=== PATIENT | female | born 1995 | race Caucasian/White ===

== ENCOUNTER 2020-10-07 11:04 | Outpatient (REF) | payer SELFPAY ==
--- NOTE | ~2020-10-07 | XR_ITS ---
EXAMINATION: XR ANKLE, RIGHT CLINICAL INFORMATION: Lateral pain without injury. COMPARISON: Radiographs dated 08/13/2014. TECHNIQUE: AP, lateral, and mortise views of the right ankle. FINDINGS: Alignment and mineralization are normal. Ankle mortise is intact. No fracture, dislocation or right ankle joint effusion is seen. Boehler's angle is normal. There is a tiny posterior calcaneal spur. There is very mild spurring of the dorsal talus. There is mild soft tissue swelling adjacent to the lateral malleolus. XR/XR ankle RT 2V IMPRESSION: 1. No fracture, dislocation or right ankle joint effusion is seen. 2. There is mild soft tissue swelling adjacent to the lateral malleolus. 3. There is a tiny posterior calcaneal spur.
== END 2020-10-07 11:05 | disposition home or self-care (01) ==
LOC: HO.XRAY 11:04
PROVIDERS: Visit Provider Emergency Medicine
DX: M25.571 Pain in right ankle and joints of right foot (principal)
CPT/HCPCS: 73600

== ENCOUNTER 2021-02-18 14:55 | Outpatient (REF) | payer OTHER, SELFPAY ==
--- NOTE | ~2021-02-18 | XR_ITS ---
EXAMINATION: XR chest 2V CLINICAL INFORMATION: Reason for Exam COVID-19 COMPARISON: Chest radiograph 06/21/2017 TECHNIQUE: 2 views of the chest XR/XR chest 2V FINDINGS/IMPRESSION: Clear lungs. No pneumothorax. No pleural effusion. Normal cardiomediastinal silhouette.
[2021-02-18 15:37] LABS: Hematocrit 42.7 % (37.0-47.0); Hemoglobin 13.4 g/dl (12.0-16.0); Mean Corpuscular HGB Conc 31.4 g/dl (31.0-35.0); Mean Corpuscular Hemoglobin 26.5 pg (27.0-33.0); Mean Corpuscular Volume 84.6 fL (80.0-98.0); Platelet Count 265 X10*3/uL (160-400); Red Blood Count 5.05 X10*6/uL (4.20-5.50); Red Cell Distribution Width 13.2 % (11.0-16.0); White Blood Count 7.2 X10*3/uL (4.8-10.8)
[2021-02-18 16:06] LABS: Anion Gap 10 (12-20); Blood Urea Nitrogen 12 mg/dL (9-16); Calcium 9.5 mg/dL (8.4-10.2); Carbon Dioxide 28 mmol/L (22-29); Chloride 103 mmol/L (96-108); Estimated Glomerular Filt Rate > 60; Glucose Random 90 mg/dL (60-115); Potassium 4.2 mmol/L (3.3-5.1); Sodium 137 mmol/L (135-145)
== END 2021-02-18 14:56 | disposition home or self-care (01) ==
LOC: HO.LAB 14:55
PROVIDERS: PCP Family Medicine; Visit Provider Family Medicine
DX: U07.1 COVID-19 (principal); R05.3 Chronic cough; Z20.822 Contact with and (suspected) exposure to COVID-19
CPT/HCPCS: 36415; 71046; 80048; 85027

== ENCOUNTER 2021-12-16 20:42 | Emergency (ER) | payer OTHER, SELFPAY ==
[2021-12-16 20:50] VITALS: BP 139/72; PULSE 90; RESP 18; TEMP 36.1; O2SAT 99; BMI 45.9
--- NOTE | 2021-12-16 23:40 | ED.WOUNDLAC ---
HPI - Wound/Laceration General Chief Complaint: Wound/Laceration Stated Complaint: R middle finger laceration Time Seen by Provider: 12/16/21 23:40 Source: patient Mode of arrival: ambulatory Limitations: no limitations History of Present Illness HPI narrative: 26-year-old female presents with a superficial laceration to the right tip of her middle finger that occurred while she was opening a can of corn beef. Is unknown when her last Tdap vaccine was updated. Onset (ago): hour(s) (Within the hour of arrival) Extremity Location: right: hand (Tip of middle finger) Place: home Patient tetanus UTD: No Context: accidental Associated symptoms: pain Treatments prior to arrival: bandage Related Data Allergies Allergy/AdvReac Type Severity Reaction Status Date / Time No Known Allergies Allergy Unverified 11/07/19 17:25 Review of Systems Review of Systems: Constitutional: No Fever, No Chills ENT/Mouth: No Ear Pain, No Hoarseness, No sore throat Eyes: No Eye Pain, No Swelling, No Redness, No Foreign Body Cardiovascular: No Chest Pain, No SOB Respiratory: No Cough, No Dyspnea Gastrointestinal: No Nausea, No Vomiting, No Diarrhea, No abdominal Pain Genitourinary: No Dysuria, No Hematuria Musculoskeletal: positive right middle finger pain, No Myalgias, No Joint Swelling Skin: Superficial laceration to the right middle finger tip Neuro: No Weakness, No Numbness, No Paresthesias, No Loss of Consciousness, No Dizziness, No Headache Psych: No Anxiety/Panic, No Depression Heme/Lymph: no easy bruising, no Lymphadenopathy Endocrine: No Polyuria, No Polydipsia Yes all other systems are reviewed and are negative [facility] Past Medical History Attestation statement: The following information was validated with the patient. Source: old records reviewed Social History Social History Advance Directives: No Advance Directives Information Provided: Yes Physical Exam Vital Signs: Vital Signs: Last Vital Signs Temp 97.0 F 12/16/21 20:50 Pulse 90 12/16/21 20:50 Resp 18 12/16/21 20:50 BP 139/72 12/16/21 20:50 Pulse Ox 99 12/16/21 20:50 O2 Del Method 12/16/21 20:50 BMI result Body Mass Index 45.9 Appearance: Alert. Oriented X3. No acute distress. Eyes: Pupils equal, round and reactive to light. ENT: Pharynx normal. Neck: Normal inspection. Neck supple. CVS: Normal heart rate and rhythm. Pulses normal. Respiratory: No respiratory distress. Breath sounds normal. Abdomen: Soft and nontender. Skin: Superficial laceration to the tip of the index finger. Skin warm and dry. Normal skin color. Normal skin turgor. Extremities: No lower extremity edema. Gait well-balanced well coordinated. Neuro: No motor deficit. No sensory deficit. Cranial nerves 2-12 intact. Course Course Course Narrative: 26-year-old female presents with superficial laceration to the tip of her right middle finger. She believes that her tetanus vaccine is up-to-date but is unable to give me. Laceration is superficial, will clean with Betadine, apply Steri strip and Dermabond, and update Tdap vaccine. Patient has full range of motion to the digits, pulses equal to bilateral upper extremities. No further action required at this time. Patient verbalized understanding of and agrees plan care discharge home. Verbalized understanding of signs symptoms indicating need for emergent intervention. MDM - Wound/Laceration Differential Diagnosis Differential diagnosis: Likely laceration and abrasion Medical Records Attestation: I reviewed the patient's medical records. Discharge Plan Discharge Clinical Impression: Laceration Patient Disposition: Home, Self-Care Instructions: Finger Laceration (ED), Skin Adhesive Care (ED) Additional Instructions: You were evaluated for laceration to the tip of your 3rd finger on the right hand. We placed a Steri-Strips, and glue. Steri-Strips and glue will fall off on their own. We updated her Tdap vaccine today. Thank you for choosing this emergency department for evaluation. Please follow-up with primary care physician as needed. Return to the emergency department for any new, concerning, or worsening symptoms. Interventions: ED Discharge Assessment Last Done: 12/17/21 00:27 Discharge Date/Time: 12/17/21 00:30
[2021-12-17] MEDS: Diphth,Pertus(ACell),Tet Adult 0.5 ML SYRINGE IM (00:13)
== END 2021-12-17 00:30 | disposition home or self-care (01) ==
PROVIDERS: Emergency Provider Internal Medicine
DX: S61.212A Laceration without foreign body of right middle finger without damage to nail, initial encounter (principal); S60.412A Abrasion of right middle finger, initial encounter; W26.8XXA Contact with other sharp object(s), not elsewhere classified, initial encounter; Y93.9 Activity, unspecified; Y92.9 Unspecified place or not applicable; Y99.9 Unspecified external cause status
CPT/HCPCS: 12001; 90471; 90715; 99283; 99284

== ENCOUNTER 2022-09-20 08:02 | Outpatient (REF) | payer OTHER, SELFPAY ==
[2022-09-20 08:26] LABS: MANUAL DIFF FLAG NO
[2022-09-20 09:00] LABS: Basophils Percent Auto 0.4 % (0-2); Eosinophils Absolute Auto 0.1 X10*3/uL (0.0-0.4); Eosinophils Percent Auto 1.9 % (0-4); Hemoglobin 13.6 g/dl (12.0-16.0); Imm Gran Abs Auto 0.03 X10*3/uL (0.00-0.03); Imm Gran Pct Auto 0.4 % (0.0-0.4); Lymphocytes Absolute Auto 2.8 X10*3/uL (1.2-4.9); Mean Corpuscular HGB Conc 31.6 g/dl (31.0-35.0); Mean Corpuscular Hemoglobin 26.9 pg (27.0-33.0); Mean Platelet Volume 12.1 fL (9.4-12.3); Monocytes Absolute Auto 0.7 X10*3/uL (0.1-1.2); Monocytes Percent Auto 9.1 % (2-11); Neutrophils Absolute Auto 3.7 x10*3/uL (2.0-8.3); Neutrophils Percent Auto 50.2 % (45-73); Platelet Count 240 X10*3/uL (160-400); Red Blood Count 5.06 X10*6/uL (4.20-5.50); Red Cell Distribution Width 13.6 % (11.0-16.0); White Blood Count 7.4 X10*3/uL (4.8-10.8)
[2022-09-20 09:12] LABS: Estimated Average Glucose 105 mg/dL; Hemoglobin A1c % 5.3 %
[2022-09-20 09:50] LABS: Alanine Aminotransferase 28 U/L (0-31); Albumin Level 3.9 g/dL (3.5-5.0); Alkaline Phosphatase 67 U/L (39-117); Anion Gap 15 (12-20); Aspartate Amino Transferase 19 U/L (5-31); Bilirubin Total 0.3 mg/dL (0.0-1.0); Blood Urea Nitrogen 14 mg/dL (9-16); Calcium 9.4 mg/dL (8.4-10.2); Carbon Dioxide 22 mmol/L (22-29); Chloride 106 mmol/L (96-108); Cholesterol 185 mg/dL; Estimated Glomerular Filt Rate > 60; Glucose Random 98 mg/dL (60-115); HDL Cholesterol 43 mg/dL; LDL Cholesterol Calculated 122 mg/dl; Potassium 3.9 mmol/L (3.3-5.1); Sodium 139 mmol/L (135-145); Total Protein 7.1 g/dL (6.5-8.0); Triglycerides 100 mg/dL
[2022-09-20 09:54] LABS: HBS Num1 5.25 mIU/mL (0-7.99); HBc Num1 0.09 S/CO (0.00-0.79); HBsAGNum1 0.31 S/CO (0.00-0.99); HIV AB/AG Nonreactive (Nonreactive); HIV Num 1 0.05 S/CO (0.00-0.99); Hepatitis B Core Antibody Nonreactive (Nonreactive); Hepatitis B Surface Antigen Negative (Negative); ~Hepatitis B Surface Antibody NONREACTIVE (Nonreactive)
[2022-09-20 09:57] LABS: TSH reflex Free T4 1.82 uIU/mL (0.32-4.0); Vitamin D 25-OH Total 18.7 ng/mL (>30)
[2022-09-20 10:14] LABS: Folate 13.9 ng/mL (> or = 4.0); Vitamin B12 325 pg/mL (200-900)
[2022-09-22 14:38] LABS: HCV Log PCR <1.18 NOT DETECTED Log IU/mL (NOT DETECTED); HepC Viral Load <15 NOT DETECTED IU/mL (NOT DETECTED)
== END 2022-09-20 08:03 | disposition home or self-care (01) ==
LOC: HO.LAB 08:02
PROVIDERS: Visit Provider Registered Nurse
DX: Z00.00 Encounter for general adult medical examination without abnormal findings (principal)
CPT/HCPCS: 36415; 80053; 80061; 82306; 82607; 82746; 83036; 84443; 85025; 86704; 86706; 87340; 87389; 87522

== ENCOUNTER 2022-09-21 19:18 | Outpatient (REF) | payer OTHER, SELFPAY | END 2022-09-21 19:19 | disposition home or self-care (01) | LOC: HO.HHCLNP 19:18 | PROVIDERS: Visit Provider Advanced Practice Midwife | DX: Z13.89 Encounter for screening for other disorder (principal) | CPT/HCPCS: 88142 ==

== ENCOUNTER 2023-02-01 10:05 | Outpatient (REF) | payer OTHER, SELFPAY ==
--- NOTE | 2023-02-01 10:07 | EMG_ITS ---
Please see scanned EMG / Nerve Conduction Report. MTDD
== END 2023-02-01 10:06 | disposition home or self-care (01) ==
LOC: HO.NEURO 10:05
PROVIDERS: PCP Internal Medicine; Visit Provider General Practice
DX: R20.0 Anesthesia of skin (principal)
CPT/HCPCS: 95885; 95910

== ENCOUNTER 2023-02-22 10:09 | Outpatient (AMB) | payer OTHER, SELFPAY ==
--- NOTE | 2023-02-22 10:35 | A.OFFVIS_ITS ---
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 States it has worsen over the last 3 years. States her pinky also goes numb. Hx of right carpal tunnel release about 9-10 years ago. EMG done of left hand. States she would like to discuss surgical intervention vs injections. 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 She works here at [employer] in [employer]. She complains of several years of numbness in her left thumb, index and middle fingers. She says this has been present since she was 17 but has worsened in the last ~3 years. Her symptoms are intermittent, but possibly daily and worse at night. I should note that when she is talk about numbness she has also talked about numbness in her upper arm and dorsal aspect of her forearm.. She uses a night splint, with some relief. She has a hx of a right carpal tunnel release in ~2012, with good resolution of her symptoms and normal sensation. She does report some occasional pain about her right wrist at times and sometimes likes to wear her brace at night.. 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 Review of Systems Const All systems reviewed & are unremarkable except as noted in HPI and below Physical Exam Vital Signs: BMI result Body Mass Index 45.2 Const General: cooperative, healthy appearing and no acute distress Orientation/consciousness: patient oriented x3 HEENT Head: Yes normocephalic and Yes atraumatic Eyes EOM: EOMs intact bilaterally Resp Effort & Inspection: normal respiratory effort and able to speak in complete sentences Cardio Jugular venous distension: no JVD Skin General skin exam: turgor normal Rashes: no rashes Neuro General: patient oriented x3 Extrem Other: Evaluation of Bilateral Upper Extremity: The patient is alert, oriented, and in no acute distress Neuro: Median, Ulnar, Radial nerves motor and sensory intact and sensation is normal to the tips of all digits today in clinic No thenar or intrinsic wasting Good APB muscle belly firing and good finger cross Vascular: Cap refill brisk ROM: She can make a fist and extend all her digits No locking or catching Skin: No lacerations or abrasions. General: No Ecchymosis. No Erythema or evidence of infection. Nerve Conduction study: Left side only Early carpal tunnel syndrome Dr. Perez 02/01/23 Psych Appearance: grossly normal Affect: normal affect Attitude: cooperative Assessment & Plan Assessment & Plan (1) Carpal tunnel syndrome of left wrist: Code(s): G56.02 - Carpal tunnel syndrome, left upper limb (2) History of carpal tunnel surgery of right wrist: Code(s): Z98.890 - Other specified postprocedural states Plan Assessment & Plan: 1. Left carpal tunnel syndrome, early Symptoms intermittent but daily, worse with activity I educated her about this condition I discussed operative and non-operative treatment options I recommend she continue to wear only her left velcro wrist splint at night. I would like for her to discontinue any brace use for the right hand. Also do not think she needs any kind of ?morning splint? for the left hand. It sounds like that may be a soft Comfort Cool type splint. I have also asked that she try to be mindful of whether she is actually getting numbness and tingling in the thumb index and middle fingers of the left hand when she thinks about numbness and explained that that is more related to carpal tunnel syndrome. The numbness that she gets on the dorsal aspect of her forearm and her upper arm should be considered separate and something that would not benefit from a carpal tunnel release. So I need her to differentiate these things when she is thinking about left-sided numbness. That is her homework for the next few weeks. I have also asked that she try to figure out whether she has more or less numbness and tingling in the left small index and middle fingers with or without wearing her brace. She does not like to wear it every day so she should be able to figure out if there is any difference. She will follow up in 6-8 weeks to discuss her findings as we decide whether not she might benefit from a left carpal tunnel release at this time.. 2. History of right carpal tunnel release in ~2022 With good resolution of her symptoms following surgery She reports occasionally wearing a stiff wrist splint at night, and I encouraged her to discontinue using any splints on her right side Scribed for Cayla George MD by Roosevelt Renae, medical equipment sales, on 02/22/23 at 11:20 AM, EST. Coding Level of Care Code New Pt Level 3 (93766) Diagnoses Carpal tunnel syndrome of left wrist G56.02 History of carpal tunnel surgery of right wrist Z98.890
[2023-02-22 10:37] VITALS: BMI 45.2
== END 2023-02-22 11:27 | disposition home or self-care (01) ==
PROVIDERS: PCP Internal Medicine; Visit Provider Orthopaedic Surgery
DX: G56.02 Carpal tunnel syndrome, left upper limb (principal)
CPT/HCPCS: 99203

== ENCOUNTER → 2023-02-22 10:09 | Outpatient (BNVA) | payer OTHER, SELFPAY | PROVIDERS: PCP Internal Medicine; Visit Provider Orthopaedic Surgery ==

== ENCOUNTER 2023-05-12 11:43 | Outpatient (REF) | payer OTHER, SELFPAY ==
[2023-05-12 13:46] LABS: Amylase 68 U/L (28-100); Anion Gap 12 (12-20); Blood Urea Nitrogen 11 mg/dL (9-16); Calcium 9.8 mg/dL (8.4-10.2); Carbon Dioxide 24 mmol/L (22-29); Chloride 106 mmol/L (96-108); Estimated Glomerular Filt Rate > 60; Glucose Random 87 mg/dL (60-115); HCG Quantitative < 2 mIU/mL; Lipase 23 U/L (8-78); Potassium 3.9 mmol/L (3.3-5.1); Sodium 138 mmol/L (135-145)
== END 2023-05-12 11:44 | disposition home or self-care (01) ==
LOC: HO.LAB 11:43
PROVIDERS: Absent Provider General Practice; PCP General Practice; Visit Provider Internal Medicine
DX: R10.10 Upper abdominal pain, unspecified (principal); R11.12 Projectile vomiting
CPT/HCPCS: 36415; 80048; 82150; 83690; 84702

== ENCOUNTER 2023-05-19 10:37 | Outpatient (REF) | payer OTHER, SELFPAY ==
--- NOTE | ~2023-05-19 | US_ITS ---
EXAMINATION: US ABDOMEN COMPLETE CLINICAL INFORMATION: Upper abdominal pain. COMPARISON: None available. TECHNIQUE: Real-time imaging of the abdominal viscera. Limited visualization due to bowel gas. FINDINGS: PANCREAS: Poorly visualized ABDOMINAL AORTA: The proximal, mid, and distal segments are normal in caliber. INFERIOR VENA CAVA: Limited visualization. LIVER: Hepatomegaly, 16.0 cm. Increased hepatic parenchymal heterogeneity and echogenicity could be associated with hepatocellular disease/hepatic steatosis and substantially limits visualization. Correlation with liver function tests and clinical exam recommended to determine further management. Two echogenic foci in the left hepatic lobe, each measuring 0.6 cm, characteristic of small calcifications. Prior CT scan of 01/06/2018 also demonstrated hepatic calcifications. GALLBLADDER: No gallstones. No gallbladder wall thickening. COMMON BILE DUCT: Normal in caliber measuring 0.5 cm in diameter. RIGHT KIDNEY: Mild fullness of the right renal pelvis. No renal calculi. Limited visualization. The kidney measures 10.7 cm in maximum dimension. LEFT KIDNEY: No hydronephrosis. No renal calculi. Limited visualization. The kidney measures 9.2 cm in maximum dimension. SPLEEN: Normal. The spleen measures 8.7 cm in maximum dimension. FREE FLUID: None. US/US abdomen complete IMPRESSION: 1. Hepatomegaly, 16.0 cm. Increased hepatic parenchymal heterogeneity and echogenicity could be associated with hepatocellular disease/hepatic steatosis and substantially limits visualization. Correlation with liver function tests and clinical exam recommended to determine further management. 2. Mild fullness of the right renal pelvis. No renal calculi.
== END 2023-05-19 10:38 | disposition home or self-care (01) ==
LOC: HO.US 10:37
PROVIDERS: PCP General Practice; Visit Provider Internal Medicine
DX: R10.10 Upper abdominal pain, unspecified (principal)
CPT/HCPCS: 76700

== ENCOUNTER 2023-05-22 | Outpatient (REF) | payer OTHER, SELFPAY ==
[2023-05-28 12:46] LABS: H Pylori Breath Test Negative (Negative)
== END 2023-05-22 00:01 | disposition home or self-care (01) ==
LOC: HO.LNP
PROVIDERS: Visit Provider Physician Assistant Surgical
DX: Z01.818 Encounter for other preprocedural examination (principal)
CPT/HCPCS: 83013

== ENCOUNTER → 2023-06-30 07:45 | Outpatient (REF) | payer OTHER, SELFPAY ==
--- NOTE | ~2023-06-30 | NM_ITS ---
EXAMINATION: BILIARY TRACT IMAGING STUDY WITH CCK CLINICAL INFORMATION: Right upper quadrant abdominal pain.. COMPARISON: Abdominal ultrasound done on 05/19/2023.. TECHNIQUE: Serial gamma scintillation camera images were obtained over the abdomen for a total observation period of 60 minutes following the intravenous administration of 5.0 mCi Tc-99m mebrofenin. FINDINGS: There is good concentration of activity in the liver by 5 minutes post injection. Biliary activity is visualized by 10 minutes. The gallbladder is well visualized by 40 minutes. Small bowel is well visualized by 15 minutes. At 60 minutes post radiopharmaceutical injection, a 30-minute infusion of 2.3 micrograms Sincalide was then begun and an additional 40 minutes of images were obtained. There is no emptying of the gallbladder. By the end of the study there is good clearance of activity from the liver and visualization of diffuse small bowel activity. The calculated gallbladder ejection fraction is 0% (Normal range of gallbladder ejection fraction is between 35-80%; GBEF <35% is considered biliary hypokinesia and >80% is considered biliary hyperkinesia; Ref. #1-Clinical Journal of Gastroenterology (2020) 14:1308?1317; Ref.#2-https://[email or web address]/snrsea-cwjtocz-[email or web address] [email or web address]). NM/NM hepatobiliary w pharm IMPRESSION: Visualization of the gallbladder is evidence of a patent cystic duct and strong evidence against the diagnosis of acute cholecystitis. The common bile duct is patent. Gallbladder emptying and ejection fraction are abnormal. Liver function appears normal.
== END ==
LOC: HO.NUCMED 07:45
PROVIDERS: PCP General Practice; Visit Provider Surgery
DX: R10.11 Right upper quadrant pain (principal)
CPT/HCPCS: 78227; A9537; J2805

== ENCOUNTER 2023-08-16 13:53 | Outpatient (AMB) | payer OTHER, SELFPAY ==
--- NOTE | 2023-08-16 15:07 | A.OFFVIS_ITS ---
VS Expanded 08/16/23 15:26 Height 4 ft 10.5 in Weight 220 lb BMI 45.2 Intake Visit Reasons: TV Pre Op Lap Tonya 08/30/23 Allergies cetirizine [From [facility]] Allergy (Intermediate, Verified 08/16/23 15:26) hives prednisolone Adverse Reaction (Verified 08/16/23 15:26) sensitivity Medication List - Last Reconciled 08/16/23 by Pacheco Le MD fexofenadine (Leslie Allergy) 60 mg PO BID omeprazole 40 mg PO DAILY ondansetron 4 mg PO Q6H PRN ondansetron 4 mg PO Q12H PNV,calcium 42-mbkb-iopfp acid 27 mg iron- 1 mg (M-Dale Plus) 1 tab PO QAM HPI HPI TV Pre Op Lap Tonya 08/30/23: Details: Start time: 2.54pm, End time: 3.14pm ?I spent 15 minutes speaking with the patient on the phone plus an additional 5 minutes reviewing and updating records for a total of 20 minutes HPI Comments Details: The patient has been complaining of postprandial RUQ pain Abdominal ultrasound did not reveal cholelihiasis. 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 The patient was not aware of having a cholelithiasis. We also discussed that bariatric surgery may accelerate the onset of symptoms of cholelithiasis and that is why elective cholecystectomy in indicated and recommended. We discussed in detail the potential complications and their management including bleeding, bile leak, pancreatitis and major bile duct injury. 2. Avoid any aspirin, motrin, aleve, ibuprofen, advil, meloxicam. They can cause bleeding. You can use Tylenol 3. Do your preoperative blood work nay day between 08/17/23 and Monday08/18/23. No need to fast. Orders: Orders Prothrombin Time INR Today K82.8 - Other specified diseases of gallbladder Partial Thromboplastin Time Today K82.8 - Other specified diseases of gallbladder Comprehensive Met. Panel Today K82.8 - Other specified diseases of gallbladder Complete Blood Count Auto Diff Today K82.8 - Other specified diseases of gallbladder Type and Screen Today K82.8 - Other specified diseases of gallbladder Medications: New ondansetron 4 mg PO Q12H 20 tabs 0RF nausea and vomiting R11.0 - Nausea omeprazole 40 mg PO DAILY 90 caps 0RF K21.9 - Gastro-esophageal reflux disease without esophagitis
[2023-08-16 15:26] VITALS: BMI 45.2
== END 2023-08-16 15:30 | disposition home or self-care (01) ==
LOC: HO.HBS 13:53
PROVIDERS: PCP General Practice; Visit Provider Surgery
DX: K82.8 Other specified diseases of gallbladder (principal)
CPT/HCPCS: 99213

== ENCOUNTER → 2023-08-16 13:53 | Outpatient (BNVA) | payer OTHER, SELFPAY | PROVIDERS: PCP General Practice; Visit Provider Surgery ==

== ENCOUNTER 2023-08-23 08:23 | Outpatient (REF) | payer OTHER, SELFPAY ==
[2023-08-23 08:49] LABS: MANUAL DIFF FLAG NO
[2023-08-23 09:11] LABS: Basophils Percent Auto 0.5 % (0-2); Eosinophils Absolute Auto 0.2 X10*3/uL (0.0-0.4); Eosinophils Percent Auto 2.4 % (0-4); Hematocrit 42.3 % (37.0-47.0); Hemoglobin 13.3 g/dl (12.0-16.0); Imm Gran Abs Auto 0.02 X10*3/uL (0.00-0.03); Imm Gran Pct Auto 0.3 % (0.0-0.4); Lymphocytes Absolute Auto 2.4 X10*3/uL (1.2-4.9); Lymphocytes Percent Auto 38.5 % (20-40); Mean Corpuscular HGB Conc 31.4 g/dl (31.0-35.0); Mean Corpuscular Hemoglobin 27.1 pg (27.0-33.0); Mean Corpuscular Volume 86.2 fL (80.0-98.0); Mean Platelet Volume 12.3 fL (9.4-12.3); Monocytes Absolute Auto 0.6 X10*3/uL (0.1-1.2); Monocytes Percent Auto 9.1 % (2-11); Neutrophils Percent Auto 49.2 % (45-73); Platelet Count 243 X10*3/uL (160-400); Red Blood Count 4.91 X10*6/uL (4.20-5.50); Red Cell Distribution Width 13.4 % (11.0-16.0); White Blood Count 6.2 X10*3/uL (4.8-10.8)
[2023-08-23 09:28] LABS: Prothrombin Time 11.8 SEC (11.1-13.3)
[2023-08-23 09:30] LABS: Partial Thromboplastin Time 35.4 SEC (26.0-36.8)
[2023-08-23 09:38] LABS: Alanine Aminotransferase 23 U/L (0-31); Albumin Level 4.1 g/dL (3.5-5.0); Alkaline Phosphatase 62 U/L (39-117); Anion Gap 9 (12-20); Aspartate Amino Transferase 20 U/L (5-31); Bilirubin Total 0.3 mg/dL (0.0-1.0); Blood Urea Nitrogen 13 mg/dL (9-16); Calcium 9.5 mg/dL (8.4-10.2); Carbon Dioxide 27 mmol/L (22-29); Chloride 107 mmol/L (96-108); Estimated Glomerular Filt Rate > 60; Glucose Random 101 mg/dL (60-115); Potassium 3.9 mmol/L (3.3-5.1); Sodium 139 mmol/L (135-145); Total Protein 7.1 g/dL (6.5-8.0)
== END 2023-08-23 08:24 | disposition home or self-care (01) ==
LOC: HO.LAB 08:23
PROVIDERS: PCP General Practice; Visit Provider Surgery
DX: K82.8 Other specified diseases of gallbladder (principal)
CPT/HCPCS: 36415; 80053; 85025; 85610; 85730

== ENCOUNTER 2023-08-30 08:32 | Day surgery (SDC) | payer OTHER, SELFPAY ==
--- NOTE | 2023-08-28 13:12 | HO.ANESPROP2 ---
Documented by User: Liliana Abdul NP 08/28/23 13:14 HPI - Anesthesia Eval Consult details Narrative: 28yo F for Cholecystectomy Laparoscopic PMFSH Active Problems Active Problems: All Active Problems GERD (gastroesophageal reflux disease) (Acute) Biliary dyskinesia (Acute) Nausea (Acute) Right upper quadrant pain (Acute) History of carpal tunnel surgery of right wrist (Acute) Carpal tunnel syndrome of left wrist (Acute) Surgical History Surgical History H/O wisdom tooth extraction History of tonsillectomy Hx of carpal tunnel repair Social History Social History Patient Tobacco Use Status: Never used Tobacco Use of substances other than those prescribed or required for medical reasons: No Are you DNR?: No Advance Directives: No Advance Directives Information Provided: Yes Current occupational status: employed 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 Meds Allergies Allergy/AdvReac Type Severity Reaction Status Date / Time cetirizine [From [facility]] Allergy Intermediate hives Verified 08/30/23 08:46 prednisolone AdvReac sensitivity Verified 08/30/23 08:46 Home Medications ?Medication ?Instructions ?Recorded ?Confirmed ?Last Taken ?Type fexofenadine 60 mg tablet (Leslie 60 mg PO BID 02/22/23 08/30/23 08/23/23 History Allergy) vitamin with calcium 1 tab PO QAM 02/22/23 08/30/23 08/23/23 History no.72-iron 27 mg-folic acid 1 mg tablet (M- Plus) Exam Pertinent Lab Results Pertinent Lab Results: Laboratory Tests 08/23/23 08:40 Blood Type O Negative Antibody Screen NEGATIVE Laboratory Tests 08/23/23 08:47 WBC 6.2 Hgb 13.3 Hct 42.3 Plt Count 243 Sodium 139 Potassium 3.9 Chloride 107 Carbon Dioxide 27 BUN 13 Creatinine 0.88 Assessment and Plan Assessment Anesthesia Assessment: Chart Reviewed Documented by User: Shireen Wakefield MD 08/30/23 09:24 [facility] Family History Family history of problems with anesthesia: No Surgical History Surgical History H/O wisdom tooth extraction History of tonsillectomy Hx of carpal tunnel repair History of Problems with Anesthesia: No Social History Social History Patient Tobacco Use Status: Never used Tobacco Use of substances other than those prescribed or required for medical reasons: No Are you DNR?: No Advance Directives: No Advance Directives Information Provided: Yes Current occupational status: employed 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 Meds Allergies Allergy/AdvReac Type Severity Reaction Status Date / [facility] All[facility] Intermediate hives Verified 08/30/23 08:46 prednisolone AdvReac sensitivity Verified 08/30/23 08:46 Home Medications ?Medication ?Instructions ?Recorded ?Confirmed ?Last Taken ?Type fexofenadine 60 mg tablet (Leslie 60 mg PO BID 02/22/23 08/30/23 08/23/23 History Allergy) vitamin with calcium 1 tab PO QAM 02/22/23 08/30/23 08/23/23 History no.72-iron 27 mg-folic acid 1 mg tablet (M-Dale Plus) Exam Height,Weight and Vital Signs: Height 4 ft 10.5 in Weight 101.605 kg Vital Signs Temp Pulse Resp BP Pulse Ox O2 Del Method 08/30/23 09:02 97.4 F 98 16 148/81 H 99 Room Air Pertinent Lab Results Pertinent Lab Results: Laboratory Tests 08/23/23 08:40 Blood Type O Negative Antibody Screen NEGATIVE Laboratory Tests 08/23/23 08:47 WBC 6.2 Hgb 13.3 Hct 42.3 Plt Count 243 Sodium 139 Potassium 3.9 Chloride 107 Carbon Dioxide 27 BUN 13 Creatinine 0.88 Lab Results 08/23/23 08/30/23 Range/Units 08:40 08:45 Urine Test NEGATIVE (NEGATIVE) Blood Type O Negative Antibody Screen NEGATIVE Airway Mallampati Class: II TM Dist: >3cm Neck ROM: Full Loose/Missing/Broken Teeth: Yes (Extractions. Denies broken or loose teeth) Heart: RRR Lungs: CTAB Assessment and Plan Assessment Anesthesia Assessment: Anesthesia Plan Discussed and Chart Reviewed Final Anesthetic Review Family History of Problems with Anesthesia: No History of Problems with Anesthesia: No NPO: Yes ASA Class: III Final Preanesthetic Review: No Changes in Pt Med Stat, Meds/Allgs Chart Reviewed, Consent Obtained/Reviewed and Anes Risks/Benef Reviewed Patient Risk: Intermediate Procedure Risk: Intermediate Assessment/Block/Sedation in SS: Assess/Block/Sedation-SS Anesthetic Plan Anesthetic Plan: GA Disposition: Standard PACU
[2023-08-30] VITALS (9 sets, daily range): BP systolic 117–148; BP diastolic 54–82; PULSE 88–99; RESP 16–18; TEMP 36.3–36.6; O2SAT 96–100; BMI 46.0
[2023-08-30 08:57] LABS: UPreg QC Valid YES; Urine Pregnancy NEGATIVE (NEGATIVE)
[2023-08-30] MEDS: Aprepitant 32 MG/4.4 ML VIAL IVPUSH (09:08)
[2023-08-30] MEDS: Lactated Ringers 1,000 ML 80 ML IVCONT (09:08)
--- NOTE | 2023-08-30 10:38 | PM.OP ---
Brief Operative Note Date of Service: 08/30/23 Pre-op diagnosis: Biliary dyskinesis with RUQ pain Post-op diagnosis: same Procedure: PROCEDURE DATE: 08/30/2023 PREOPERATIVE DIAGNOSIS: Symptomatic biliary dyskinesia, morbid obesity with a body mass index of 45 kg/sq. meters and comorbidities POSTOPERATIVE DIAGNOSIS: Same as above. PROCEDURE: Laparoscopic cholecystectomy Surgeon: Fuad Le M.D., Ph.D. Research And Evaluation Analyst: Massimo Bass PA-C Anesthesia: General endotracheal anesthesia Estimated blood loss: Minimal FINDINGS AND PROCEDURE: OPERATIVE INDICATIONS: The patient is a 28year old female known to me who has been comlaining of RUQ abdominal pain. Abdominal ultrasound did not show cholelithiasis but the the HIDA scan showed a very low EF suggestive of biliary dyskinesia. The patient was placed in a low fat/low calorie diet and although she lost some weight the pain has not improved. Risks and complications of the surgery were discussed with the patient in advance, particularly the postoperative bleeding, infection, DVT or PE, bile leak, major bile duct injury that may require additional surgical intervention, cardiac, pulmonary or renal complications among others. The patient understood the risks and was in agreement with the plan. PROCEDURE: After informed consent was obtained by the patient, the patient was transferred to the Operating Room and was placed in the supine position. The patient was given preoperative antibiotics and after successful induction of general anesthesia, pneumatic compression devices were placed. The patient was then prepped and draped in the usual sterile manner and abdominal access was established with the Gopal technique. The abdomen was insufflated with C02 to a pressure of 15 mmHg. A 5 mm Versi-step port was placed, slightly to the right and superior from the umbilicus. The 5 mm camera was introduced. We inspected the area where the port had been placed and there was no injury. The patient was then placed initially in a steep reverse Trendelenburg position and three additional ports were placed, specifically a 12 mm Versi-step port just to the right of the midline below the xiphoid process and two 5 mm Versi-step ports at the right upper quadrant and right flank. At that point the patient was placed in a steep reverse Trendelenburg position tilted to the left side. The gallbladder was retracted cephalad and laterally. The peritoneal attachments of the gallbladder at the triangle of Calot posteriorly and anteriorly were taken down. The cystic duct and artery were both seen. They were completely dissected free, skeletonized all the way to the infundibulum of the gallbladder . In a similar fashion we also cleaned the liver bed just behind the cystic artery to make sure there was no additional structures in this area. Once we confirmed that both structures were entering into the gallbladder and there were no other structures in the area, they were both clipped with two clips proximally, one distally and were cut in- between. We then using the electrocautery we slowly took down the gallbladder from the liver bed. Small areas of bleeding from the liver parenchyma were controlled with the cautery. After the gallbladder was completely detached from the liver bed, it was placed in an EndoCatch bag and was removed without difficulty from the xiphoid port. We then inspected the clips at the cystic duct and artery and were both in place. There was no active bleeding from the liver bed. At that point the patient was placed in supine position, we deflated the abdomen and we removed all ports under direct vision and no bleeding was noted from any of the port sites. The fascia of the 12 mm port was closed using a #1 Polysorb suture. 30cc Ropivacaine plain were used to infiltrate the fascial closure as well as all skin incisions. A total of ml Zynrelef was applied in the Gopal wound. The skin was closed with 4-0 Monocryl subcuticular sutures antibiotic-coated. Steri-strips and OpSites were used to cover all incisions. The patient extubated and was transferred in stable condition to the Recovery Room for further care. I was present and performed all steps of the procedure. Mr. Bass was the assistant oceanographer. There were no residents to assist with this case. Fuad Le M.D., Ph.D., F.A.C.S. Surgeon: Pacheoc Le MD Anesthesia: GETA, local and other (TAP block and ml Zynrelef) Was an Research And Evaluation Analyst used for this Procedure?: No Research And Evaluation Analyst: Massimo Bass Estimated blood loss (mL): 10 IV fluids (mL): 1,500 Urine output (mL): 0 (No Lee to record output) Pathology: other (Gallbladder) Condition: stable Disposition: PACU
--- NOTE | 2023-08-30 10:42 | MHC.SHP ---
Pre-Procedural Eval Section A - 24 Hr Update-Section A only Date of Service: 08/30/23 The patient is an INPATIENT: No The patient has been examined within 24 hours of the surgical procedure. The History & Physical has been completed within 30 days and I have reviewed it.: Yes Section B - Complete if H&P > 30 days Chief Complaint: Calculus of gallbladder without cholecystitis with Details of Present Illness: Biliary dyskinesia Relevant Family History (Specify if Yes): Yes Relevant Social History: None Present Medications: None Medical History: No relevant PMH History of Previous Operations: No relevant previous surgery Allergies: Allergies Allergy/AdvReac Type Severity Reaction Status Date / Time cetirizine [From [facility]] Allergy Intermediate hives Verified 08/30/23 08:46 prednisolone AdvReac sensitivity Verified 08/30/23 08:46 Review of Systems Sugical H&P ROS: Negative: Constitution, Cardiovascular, Respiratory, Neurological, Psychiatric, Hem-Onc, Allergic/Immunologic, Gastrointestinal, Genitourinary, Musculoskeletal, Integumentary, Endocrine and Eyes/Ears/Nose/Throat Exam Surgical H&P Exam: Normal: HEENT, Normal: Heart, Normal: Lungs, Normal: Extremities, Normal: Abdomen, Normal: Skin and Normal: Neurological Plan Diagnosis/Plan: Unchanged I have reviewed the history and physical and performed a pertinent physical examination on my patient. No changes have occurred unless specified. Time Spent With Patient Time: Total time managing care of this patient today ____ minutes.
[2023-08-30] MEDS: droPERidol 5 MG/2 ML VIAL 0.625 MG IVPUSH (13:49)
== END 2023-08-30 14:42 | disposition home or self-care (01) ==
PROVIDERS: Nurse Practitioner; PCP General Practice; Visit Provider Surgery
PROC: 0FT44ZZ Resection of Gallbladder, Percutaneous Endoscopic Approach (ICD-10-PCS; CPT 47562; principal; 2023-08-30 10:30)
DX: K82.8 Other specified diseases of gallbladder (principal); R11.0 Nausea; K21.9 Gastro-esophageal reflux disease without esophagitis; E66.01 Morbid (severe) obesity due to excess calories; Z68.42 Body mass index [BMI] 45.0-49.9, adult; Z79.51 Long term (current) use of inhaled steroids; Z79.899 Other long term (current) drug therapy; Z88.8 Allergy status to other drugs, medicaments and biological substances
CPT/HCPCS: 47562; 81025; 86850; 86900; 86901; 88304; C9088; C9145; J0131; J0690; J1100; J1790; J2250; J2704; J2795; J3010

== ENCOUNTER → 2023-08-30 08:32 | Outpatient (BNV) | payer OTHER, SELFPAY | PROVIDERS: PCP General Practice; Visit Provider Surgery | DX: K82.8 Other specified diseases of gallbladder (principal) | CPT/HCPCS: 47562 ==

== ENCOUNTER 2023-09-06 08:19 | Outpatient (AMB) | payer OTHER, SELFPAY ==
--- NOTE | 2023-09-06 08:21 | A.OFFVIS_ITS ---
VS Expanded 09/06/23 08:33 BP 135/72 Blood Pressure Location Rt brachial Blood Pressure Position Sitting Pulse 91 Pulse Source Pulse Oximeter Temp 96.1 F L Temperature Source Temporal Artery Scan Pulse Oximetry 96 Oxygen Delivery Method Room Air Height 4 ft 10.5 in Weight 217 lb 6.4 oz BMI 44.7 Body Fat % 45.6 Body Fat Mass 99.2 Fat Free Mass 118.2 Visceral Fat Rating 12.0 Body Water % 39.0 Body Water Mass 84.8 Muscle Mass/Score 112.2 Basal Metabolic Rate/Score 1,705 Intake Visit Reasons: (OV) s/p Lap Tonya 08/30/23 Allergies cetirizine [From [facility]] Allergy (Intermediate, Verified 09/06/23 08:27) hives prednisolone Adverse Reaction (Verified 09/06/23 08:27) sensitivity HPI Comments Details: Very pleasant 28-year-old female returns to the office today in follow-up she. She is approximately 7 days post laparoscopic cholecystectomy performed on 08/30/[address] Le for biliary dyskinesia. She is doing well. Tolerating food and fluids without abdominal pain nausea vomiting or diarrhea. She has no complaints at today's visit. 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 Doing well. Pathology is pending. Patient may resume exercises although no heavy lifting, abdominal work or core work for 6 weeks. She may resume cardio activities.
[2023-09-06 08:33] VITALS: BP 135/72; PULSE 91; TEMP 35.6; O2SAT 96; BMI 44.7
== END 2023-09-06 08:49 | disposition home or self-care (01) ==
PROVIDERS: PCP General Practice; Visit Provider Physician Assistant Surgical
DX: Z90.49 Acquired absence of other specified parts of digestive tract (principal)
CPT/HCPCS: 99024

== ENCOUNTER → 2023-09-06 08:19 | Outpatient (BNVA) | payer OTHER, SELFPAY | PROVIDERS: PCP General Practice; Visit Provider Physician Assistant Surgical ==

== ENCOUNTER 2024-08-01 12:44 | Outpatient (REF) | payer OTHER, SELFPAY ==
[2024-08-01 14:13] LABS: HCG Quantitative 37 mIU/mL
== END 2024-08-01 12:45 | disposition home or self-care (01) ==
LOC: HO.LAB 12:44
PROVIDERS: PCP General Practice; Visit Provider General Practice
DX: Z31.9 Encounter for procreative management, unspecified (principal)
CPT/HCPCS: 36415; 84702

== ENCOUNTER 2024-08-05 09:37 | Outpatient (REF) | payer OTHER, SELFPAY ==
--- OUTSIDE RECORDS SUMMARY | 2024-08-05 10:28 | XMS_ITS | Encounter Summary ---
Author Organization [employer] Address [address] [place] [address] 7 [place] [address] Care Team Providers Care Greens Picker Name Role Phone JoshuaLove hernandez Devorah PADILLA Primary Care Provider [phone] Giselle Das MD Primary Care Provider [phone] Encounter Details Date Type Department Care Team (Latest Contact Info) Description 06/21/[address] [facility] CONVERSIONS Dental, Provider, DDS Social History Tobacco Use Types Packs/Day Years Used Date Smoking Tobacco: Never Assessed Comments Unknown Sex and Gender Information Value Date Recorded Sex Assigned at Female 12/20/2021 10:18 AM EDT Legal Sex Female 10:18 AM EDT Gender Identity Female 12/20/2021 10:18 AM EDT Sexual Orientation Straight 08/10/2022 10 :58 AM EDT documented as of this encounter Plan of Treatment Upcoming Encounters Date Type Department Care Team (Late st Contact Info) Description 08/05/2024 1:30 PM EDT Office Visit [facility] MEDICINE [address] [place] [phone] Stpehanie Lopez CNM [address] [place] [phone] 09/25/2024 3:45 PM EDT Office Visit [facility] MEDICINE [address] [place] [phone] Giselle Das MD [address] [place] [phone] documented as of this encounter Visit Diagnoses Not on filedocumented in this encounter Care Teams Greens Picker Relationship Specialty Start Date End Date Love Lewis FNP PCP - General Family Medicine 08/20/21 11/28/22 Giselle Das MD [address] [place] [id number] PCP - General Family Medicine 11/29/22 documented as of this encounter
[2024-08-05 11:02] LABS: HCG Quantitative 34 mIU/mL
== END 2024-08-05 09:38 | disposition home or self-care (01) ==
LOC: HO.LAB 09:37
PROVIDERS: PCP General Practice; Visit Provider General Practice
DX: Z34.90 Encounter for supervision of normal pregnancy, unspecified, unspecified trimester (principal)
CPT/HCPCS: 36415; 84702

== ENCOUNTER 2024-08-07 07:50 | Outpatient (REF) | payer OTHER, SELFPAY ==
--- OUTSIDE RECORDS SUMMARY | 2024-08-07 07:55 | XMS_ITS | Encounter Summary ---
Author Organization [employer] Address [address] [place] [address] 7 [place] [address] Care Team Providers Care Caramel Candy Maker Helper Name Role Phone Love Lewis Primary Care Provider [phone] Giselle Das MD Primary Care Provider Encounter Details Date Type Department Care Team (Latest Contact Info) Description 06/21/2021 Abstract [facility] CONVERSIONS Dental, Provider, DDS Social History Tobacco [...] Care Team (Late st Contact Info) Description 09/25/2024 3:45 PM EDT Office Visit [facility] MEDICINE [address] [place] [address] Giselle Das MD [address] [place] [address] documented as of this encounter Visit Diagnoses Not on filedocumented in this encounter Care Teams Caramel Candy Maker Helper Relationship Specialty Start Date End Date Love Lewis FNP PCP - General Family Medicine 08/20/21 11/28/22 Giselle Das MD [address] [place] [address] PCP - General Family Medicine 11/29/22 documented as of this encounter
[2024-08-07 09:23] LABS: HCG Quantitative 21 mIU/mL
== END 2024-08-07 07:51 | disposition home or self-care (01) ==
LOC: HO.LAB 07:50
PROVIDERS: PCP General Practice; Visit Provider Advanced Practice Midwife
DX: O20.9 Hemorrhage in early pregnancy, unspecified (principal)
CPT/HCPCS: 36415; 84702

== ENCOUNTER 2024-08-12 12:35 | Outpatient (REF) | payer OTHER, SELFPAY ==
[2024-08-12 13:38] LABS: HCG Quantitative 13 mIU/mL
--- OUTSIDE RECORDS SUMMARY | 2024-08-12 13:56 | XMS_ITS | Encounter Summary ---
Author Organization [employer] Address [address] [place] [address] [address] [place] [address] Care Team Providers Care Slack Cooper Name Role Phone Love Lewis Primary Care Provider [phone] Giselle Das MD Primary Care Provider [phone] Encounter Details Date Type Department Care Team (Latest Contact Info) Description 06/21/2021 Abstract [facility] CONVERSIONS Dental, Provider, DDS Social History Tobacco [...] Description 09/25/2024 3:45 PM EDT Office Visit [facility] MEDICINE [address] [place] [address] Giselle Das MD [address] [place] [address] documented as of this encounter Visit Diagnoses Not on filedocumented in this encounter Care Teams Slack Cooper Relationship Specialty Start Date End Date Love Lewis FNP PCP - General Family Medicine 08/20/21 11/28/22 Giselle Das MD [address] [place] [address] PCP - General Family Medicine 11/29/22 documented as of this encounter
== END 2024-08-12 12:36 | disposition home or self-care (01) ==
LOC: HO.LAB 12:35
PROVIDERS: PCP General Practice; Visit Provider General Practice
DX: O03.9 Complete or unspecified spontaneous abortion without complication (principal)
CPT/HCPCS: 36415; 84702

== ENCOUNTER 2024-08-15 12:40 | Outpatient (REF) | payer OTHER, SELFPAY ==
--- OUTSIDE RECORDS SUMMARY | 2024-08-15 15:02 | XMS_ITS | Encounter Summary ---
Author Organization [email or web address] Address [address] [place] [address] 7 [place] [address] Care Team Providers Care Director Decision Support Name Role Phone Love Lewis Primary Care Provider [phone] Giselle Das MD Primary Care Provider Encounter Details Date Type Department Care Team (Latest Contact Info) Description 06/21/2021 Abstract [facility] CON[facility] Dental, Provider, DDS Social [...] Description 09/25/2024 3:45 PM EDT Office Visit [facility] [address] [place] [address] Giselle Das MD [address] [place] [address] documented as of this encounter Visit Diagnoses Not on filedocumented in this encounter Care Teams Director Decision Support Relationship Specialty Start Date End Date Love Lewis FNP PCP - General Family Medicine 08/20/21 11/28/22 Giselle Das MD [address] [place] [address] PCP - General Family Medicine 11/29/22 documented as of this encounter
[2024-08-15 15:16] LABS: HCG Quantitative 10 mIU/mL
== END 2024-08-15 12:41 | disposition home or self-care (01) ==
LOC: HO.LAB 12:40
PROVIDERS: PCP General Practice; Visit Provider General Practice
DX: R79.89 Other specified abnormal findings of blood chemistry (principal)
CPT/HCPCS: 36415; 84702

== ENCOUNTER 2024-08-22 12:37 | Outpatient (REF) | payer OTHER, SELFPAY ==
--- OUTSIDE RECORDS SUMMARY | 2024-08-22 12:49 | XMS_ITS | Encounter Summary ---
Author Organization [employer] Address [address] [place] [address] 7 [place] [address] Care Team Providers Care Windchill Administrator Name Role Phone Love Lewis Primary Care Provider [phone]- [phone] Giselle Das MD Primary Care Provider [phone] Encounter Details Date Type Department Care Team (Latest Contact Info) Description 06/21/2021 Abstract [facility] CONVERSIONS Dental, Provider, DDS Social History Tobacco [...] Description 09/25/2024 3:45 PM EDT Office Visit [facility] MEDICINE [address] [place] [address] Giselle Das MD [address] [place] [address] documented as of this encounter Visit Diagnoses Not on filedocumented in this encounter Care Teams Windchill Administrator Relationship Specialty Start Date End Date Love Lewis FNP PCP - General Family Medicine 08/20/21 11/28/22 Giselle Das MD [address] [place] [address] PCP - General Family Medicine 11/29/22 documented as of this encounter
== END 2024-08-22 12:38 | disposition home or self-care (01) ==
LOC: HO.LAB 12:37
PROVIDERS: PCP General Practice; Visit Provider General Practice
DX: O03.9 Complete or unspecified spontaneous abortion without complication (principal)
CPT/HCPCS: 36415; 84702

== ENCOUNTER 2024-09-12 08:25 | Outpatient (REF) | payer OTHER, SELFPAY ==
--- NOTE | ~2024-09-12 | US_ITS ---
EXAMINATION: US PELVIS CLINICAL INFORMATION: Irregular menses, polycystic ovarian syndrome COMPARISON: CT January 06, 2018 TECHNIQUE: Ultrasound of the pelvis is performed using both transabdominal and transvaginal transducers along with Doppler. Transvaginal imaging is performed due to inadequate visualization transabdominally. FINDINGS: Uterus: The uterus measures 7.3 x 1.7 x 2.1 cm. The double wall endometrial thickness is 1.4 mm. The uterus is smooth in contour and has normal myometrial echogenicity. No visible fibroid. Adnexa: Both ovaries are visualized. There is normal color flow to the adnexa. There is no ovarian torsion. There is no pelvic ascites or fluid collection. Right ovary measures 2.6 x 2.2 x 1.9 cm. Volume is within normal limits measuring 6 mL. No prominent follicles are identified. Left ovary measures 2.5 x 2.4 x 1.8 cm. Volume is within normal limits at 6 mL Numerous small peripheral follicles are present. US/US pelvic and transvaginal IMPRESSION: Unremarkable pelvic ultrasound. Electronically signed by: Iraj Salazar MD 09/12/2024 02:40 PM EDT
--- OUTSIDE RECORDS SUMMARY | 2024-09-12 08:42 | XMS_ITS | Encounter Summary ---
Author Organization [employer] Address [address] [place] [address] [address] [place] [address] Care Team Providers Care Emergency Department Name Role Phone Love Lewis Primary Care Provider [phone] Giselle Das MD Primary Care Provider [phone] Encounter Details Date Type Department Care Team (Latest Contact Info) Description 06/21/2021 Abstract [facility] CONVERSIONS Dental, Provider, DDS Social History [...] 09/25/2024 3:45 PM EDT Office Visit [facility] MEDICINE [address] [place] [address] Giselle Das MD [address] [place] [address] documented as of this encounter Visit Diagnoses Not on filedocumented in this encounter Care Teams Emergency Department Relationship Specialty Start Date End Date Love Lewis FNP PCP - General Family Medicine 08/20/21 11/28/22 Giselle Das MD [address] [place] [address] PCP - General Family Medicine 11/29/22 documented as of this encounter
[2024-09-12 09:16] LABS: Hemoglobin A1C 125.4830 umol/L; Total Hemoglobin (HGBA1C) 3526.1819 umol/L
[2024-09-12 09:40] LABS: Cholesterol 192 mg/dL (<200); HDL Cholesterol 48 mg/dL (>40); Triglycerides 110 mg/dL (<150)
== END 2024-09-12 08:26 | disposition home or self-care (01) ==
LOC: HO.US 08:25
PROVIDERS: PCP General Practice; Visit Provider Advanced Practice Midwife
DX: E28.2 Polycystic ovarian syndrome (principal); N92.6 Irregular menstruation, unspecified; Z13.1 Encounter for screening for diabetes mellitus; Z13.220 Encounter for screening for lipoid disorders
CPT/HCPCS: 36415; 76830; 76856; 80061; 83036; 84146; 84403; 84443

== ENCOUNTER → 2024-09-12 13:46 | Outpatient (BNV) | payer OTHER, SELFPAY | PROVIDERS: PCP General Practice; Visit Provider Radiology Diagnostic Radiology | DX: N92.6 Irregular menstruation, unspecified (principal) | CPT/HCPCS: 76830; 76856 ==

== ENCOUNTER 2024-10-29 10:34 | Outpatient (REF) | payer OTHER, SELFPAY ==
--- OUTSIDE RECORDS SUMMARY | 2024-10-28 17:00 | XMS_ITS | Encounter Summary ---
Author Organization [employer] Address [address] [place] [address] Care Team Providers Care Senior Group Manager Name Role Phone Giselle Das MD Primary Care Provider [phone] Encounter Details Date Type Department Care Team (Late st Contact Info) Description 10/28/2024 5:00 PM EDT Office Visit [facility] [address] [place] [address] Rikki Van MD [address] [place] [address] Acute pain of left knee (Primary Dx) Social History Tobacco Use Types Packs/Day Years Used Date Smoking Tobacco: Never Passive Smoke Exposure: Never Smokeless Tobacco: Never Alcohol Use Standard Drinks/Week Comments Never 0 (1 standard drink = 0.6 oz pur e alcohol) Depression Answer Date Recorded Patient Health Questionnaire-9 Score 4 09/25/2024 Patient Health Questionnaire-9 Score 4 09/25/2024 Last PHQ-9: Questionnaire Data Not on file 0 09/25/2024 Housing Stability Answer Date Recorded What is your housing situation today? I have anabellaraimundo reyes 09/25/[address] you li ve. Do you have problems with any of the following? None of the above 09/25/2024 Food Insecurity Answer Date Recorded Within the past 12 months, y ou worried that your food would run out before you got money to buy more: Never True 09/25/2024 Within the past 12 months,th e food you bought just didn't last and you didn't have enough money to get more: Never True 07/2024 Transportation Answer Date Recorded In the past 12 months, has l ack of transportation kept you from medical appts, meetings, work or from getting things needed for daily living? No 09/25/2024 Utilities Answer Date Recorded In the past 12 months, has t he electric, gas, oil or water company threatened to shut off services in your home? No 09/25/2024 Depression Answer Date Recorded Patient Health Questionnaire-2 Score 0 09/25/2024 Internet Access Answer Date Recorded Internet Access Q1 Yes 09/25/2024 Internet Access Q2 Not on file 09/25/2024 Comments No Sex and Gender Information Value Date Recorded Sex Assigned at Female 12/20/2021 10:18 AM EDT Legal Sex Female 10:18 AM EDT Gender Identity Female 12/20/2021 10:18 AM EDT Sexual Orientation Straight 08/10/2022 10 :58 AM EDT documented as of this encounter Last Filed Vital Signs Vital Sign Reading Time Taken Comments Blood Pressure 145/71 10/28/2024 4:57 PM EDT Pulse 85 10/28/2024 4:57 PM EDT Temperature 37.2 C (98.9 F) 10/28/2024 4:57 PM EDT Respiratory Rate 20 10/28/2024 4:57 PM EDT Oxygen Saturation 90% 10/28/2024 4:57 PM EDT Inhaled Oxygen Concentration - - Weight 109 kg (240 lb 9.6 oz) 10/28/2024 4:57 PM EDT Height - - Body Mass Index 50.29 09/25/2024 4:24 PM EDT documented in this encounter Progress Notes * Rikki Van MD - 10/28/2024 5:00 PM EDT Subjective History was provided by the patient. Deysi Ruiz is a 29 y.o. female who presents for evaluation of left knee pain for 1 week. Denies fall or injury, but symptoms started after walking around a park with her child, then andexercising afterward (stretching and doing Jovita). Developed swelling and pain. Feels like knee is giving out. Pain worse with fully extending or flexing. Difficulty going up and down stairs. Has been taking Ibuprofen but at 200mg dose with only minimal relief. Patient denies any chance of (not engaged in sexual activity). 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 States no significant issues with doing her work at this time. Objective Vitals: 10/28/24 1657 BP: (!) 145/71 BP Location: Left arm Patient Position: Sitting BP Cuff Size: Adult Pulse: 85 Resp: 20 Temp: 98.9 ??F (37.2 ??C) TempSrc: Temporal SpO2: 90% Weight: 240 lb 9.6 oz (109 kg) Physical Exam Constitutional: General: She is not in acute distress. Appearance: Normal appearance. She is not ill-appearing, toxic-appearing or diaphoretic. HENT: Head: Normocephalic and atraumatic. Right Ear: External ear normal. Left Ear: External ear normal. Mouth/Throat: Pharynx: Oropharynx is clear. Eyes: Extraocular Movements: Extraocular movements intact. Conjunctiva/sclera: Conjunctivae normal. Pulmonary: Effort: Pulmonary effort is normal. Musculoskeletal: General: Tenderness present. No swelling, deformity or signs of injury. Cervical back: Neck supple. Right lower leg: No edema. Left lower leg: No edema. Comments: Left posterior knee tenderness, but no significant effusion/edema; no popliteal bulge/mass; no calf tenderness; negative anterior/posterior drawer's; no varus/valgus laxity; negative Benny's; negative Valerie's Skin: General: Skin is warm and dry. Neurological: General: No focal deficit present. Mental Status: She is alert and oriented to person, place, and time. Gait: Gait abnormal (antalgic gait). Psychiatric: Mood and Affect: Mood normal. Behavior: Behavior normal. Diagnoses and all orders for this visit: Acute pain of left knee (Primary) - XR Knee 4+ Views Left; Future Patient presents to [facility] due to left posterior knee pain for 1 week after doing an activity Denies any injury or trauma No ligament instability or meniscal signs on exam Will check X-ray of left knee Advised to increase Ibuprofen to 600-800mg PO BID PRN (with food) Potential adverse effects of the medication reviewed Would consider PT if not better with NSAIDs Discussed HEIDE wrap and sleep position Indications for UC/ER use reviewed Advised to contact the clinic if persistent or worsening symptoms documented in this encounter Plan of Treatment Not on file documented as of this encounter Procedures Procedure Name Priority Date/Time Associated Diagnosis Comments XR KNEE 4+ VIEWS LEFT Routine 10/29/2024 10:48 AM EDT Acute pain of left knee documented in this encounter Results * XR Knee 4+ Views Left (10/29/2024 10:48 AM EDT) Anatomical Region Laterality Modality Lower Extremities, Knee Left Radiogra phic Imaging 10/29/2024 10:4 8 AM EDT Narrative 10/29/2024 11:02 AM EDT [place] [address] XRay Report Signed Patient: Deysi Doyle MR# : [id number] : 1995 Acct:[id number] Age/Sex: 29 / F ADM Date: 10/29/24 Loc: HO.OLEAY Attending Dr: Rikki Van MD Ordering Physician: Rikki Van MD Date of Service: 10/29/24 Procedure(s): XR knee LT 4V Accession Number(s): [id number] cc: Giselle Das; Rikki Van MD Reason for Exam: PAIN LEFT KNEE EXAMINATION: XR KNEE, LEFT CLINICAL INFORMATION: PAIN LEFT KNEE COMPARISON: None available. TECHNIQUE: Four views of the left knee. FINDINGS: There is a small amount joint fluid. Joint spaces are preserved. There are no osteophytes. Patellofemoral joint is aligned. There is no soft tissue calcification. XR/XR knee LT 4V IMPRESSION: Unremarkable left knee. Electronically signed by: Iraj Salazar MD 10/29/2024 10:59 AM EDT Dictated By: Iraj Salazar MD Signed By: <Electronically signed by Iraj Salazar MD in OV> 10/29/24 1059 DD/ 1048 TD/TT: 10/29/24 1055 Tilt Tray Driver: Procedure Note Donotuseinterpreter, Image - 10/29/2024 [facility] [address] [place] [address] XRay Report Signed Patient: Deysi Doyle MMR# : [id number] : 1995Acct:[id number] Age/Sex: 29 / FADM Date: 10/29/24 Loc: HO.XRAY Attending Dr: Rikki Van MD Ordering Physician: Rikki Van MD Date of Service: 10/29/24 Procedure(s): XR knee LT 4V Accession Number(s): [id number] cc: Giselle Das; Rikki Van MD Reason for Exam: PAIN LEFT KNEE EXAMINATION: XR KNEE, LEFT CLINICAL INFORMATION: PAIN LEFT KNEE COMPARISON: None available. TECHNIQUE: Four views of the left knee. FINDINGS: There is a small amount joint fluid. Joint spaces are preserved. There are no osteophytes. Patellofemoral joint is aligned. There is no soft tissue calcification. XR/XR knee LT 4V IMPRESSION: Unremarkable left knee. Electronically signed by: Iraj Salazar MD 10/29/2024 10:59 AM EDT Dictated By: Iraj Salazar MD Signed By: <Electronically signed by Iraj Salazar MD in OV> 10/29/24 1059 DD/ 1048 TD/TT: 10/29/24 1055 Tilt Tray Driver: Rikki Van MD IMG XR PROCEDURES Edited Result - Final documented in this encounter Visit Diagnoses Diagnosis Acute pain of left knee- Primary documented in this encounter Additional Health Concerns Assessment Noted Time PHQ-9 Depression Total Score: 4 09/26/19 25 5:05 PM EDT documented as of this encounter Care Teams Senior Group Manager Relationship Specialty Start Date End Date Giselel Das MD [address] [place] [id number] PCP - General Family Medicine 11/29/22 documented as of this encounter
--- NOTE | ~2024-10-29 | XR_ITS ---
EXAMINATION: XR KNEE, LEFT CLINICAL INFORMATION: PAIN LEFT KNEE COMPARISON: None available. TECHNIQUE: Four views of the left knee. FINDINGS: There is a small amount joint fluid. Joint spaces are preserved. There are no osteophytes. Patellofemoral joint is aligned. There is no soft tissue calcification. XR/XR knee LT 4V IMPRESSION: Unremarkable left knee. Electronically signed by: Iraj Salazar MD 10/29/2024 10:59 AM EDT
--- OUTSIDE RECORDS SUMMARY | 2024-10-29 10:15 | XMS_ITS | Encounter Summary ---
Author Organization [employer] Address [address] [place] [address] 7[address] [place] [address] Care Team Providers Care Sustainable Agriculture Specialist Name Role Phone Giselle Das MD Primary Care Provider [phone] Encounter Details Date Type Department Care Team (Late st Contact Info) Description 10/29/2024 10:15 AM EDT Telemedicine [facility] [address] [place] [address] Anabel Beltrán FNP [address] [place] [address] Arrived Social History Tobacco Use Types Packs/Day Years [...] is your housing situation today? I have anabella reyes 09/25/[address] you [...] as of this encounter Plan of Treatment Not on file documented as of this encounter Visit Diagnoses Not on filedocumented in this encounter Additional Health Concerns Assessment Noted Time PHQ-9 Depression Total Score: 4 09/26/19 25 5:05 PM EDT documented as of this encounter Care Teams Sustainable Agriculture Specialist Relationship Specialty Start Date End Date Giselle Das MD [address] [place] [address] PCP - General Family Medicine 11/29/22 documented as of this encounter
--- OUTSIDE RECORDS SUMMARY | 2024-10-29 12:26 | XMS_ITS | Encounter Summary ---
Author Organization [employer] Address [address] [place] [address] 7 [place] [address] Care Team Providers Care Coating Machine Helper Name Role Phone Giselle Das MD Primary Care Provider Reason for Visit * Reason Onset Date Comments Appointment Request 10/28/2024 Encounter Details Date Type Department Care Team ([facility] Contact Info) Description 10/28/2024 Telephone [facility] [address] [place] [address] Anabel Beltrán FNP [address] [place] [address] Appointment Request Social History Tobacco Use Types Packs/Day Years [...] AM EDT documented as of this encounter Miscellaneous Notes * Telephone Encounter - Jasmine Shields [place] - 10/28/2024 1:37 PM EDT Tc returning pt call requesting if SO apt scheduled tomorrow can be made a telephone visit. I spokewith pt and confirmed that this was ok with provider and that apt has been changed to telephone visit. Pt understood. documented in this encounter Plan of Treatment Not on file documented as of this encounter Visit Diagnoses Not on filedocumented in this encounter Additional Health Concerns Assessment Noted Time PHQ-9 Depression Total Score: 4 09/26/19 25 5:05 PM EDT documented as of this encounter Care Teams Coating Machine Helper Relationship Specialty Start Date End Date Giselle Das MD [address] [place] [address] PCP - General Family Medicine 11/29/22 documented as of this encounter
--- OUTSIDE RECORDS SUMMARY | 2024-10-29 12:26 | XMS_ITS | Encounter Summary ---
Author Organization [employer] Address [address] [place] [address] Street [address] [place] [address] Care Team Providers Care Merchandising Specialist Name Role Phone Giselle Das MD Primary Care Provider [phone] Encounter Details Date Type Department Care Team (Latest Contact Info) Description 10/29/2024 Travel Social History Tobacco Use Types Packs/Day Years [...] documented as of this encounter Care Teams Merchandising Specialist Relationship Specialty Start Date End Date Giselle Das MD [address] [place] [address] PCP - General Family Medicine 11/29/22 documented as of this encounter
--- OUTSIDE RECORDS SUMMARY | 2024-10-29 12:26 | XMS_ITS | Encounter Summary ---
Author Organization [employer] Address [address] [place] [address] 7 [place] [address] Care Team Providers Care Package Sealer Machine Name Role Phone Giselle Das MD Primary Care Provider [phone] Reason for Visit * Reason Onset Date Comments CHARTPREP 10/25/2024 Encounter Details Date Type Department Care Team ([facility] st Contact Info) Description 10/25/[address] [facility] [address] [place] [address] Giselle Das MD [address] [place] [address] CHARTPREP Social History Tobacco Use Types Packs/Day Years [...] encounter Miscellaneous Notes * Telephone Encounter - Eddie Meeks [place] - 10/25/2024 12:56 PM EDT Chart Prep Labs: done except vitamin D lab order Images: done Referrals: appointment pending Vaccines due: Covid, Flu, and PCV20,IPV Screenings: not applicable Overdue care gaps: MANDY-7, Oral health screening, and Disability screen documented in this encounter Plan of Treatment Not on file documented as of this encounter Visit Diagnoses Not on filedocumented in this encounter Additional Health Concerns Assessment Noted Time PHQ-9 Depression Total Score: 4 09/26/19 25 5:05 PM EDT documented as of this encounter Care Teams Package Sealer Machine Relationship Specialty Start Date End Date Giselle Das MD [address] [place] [address] PCP - General Family Medicine 11/29/22 documented as of this encounter
--- OUTSIDE RECORDS SUMMARY | 2024-10-29 12:26 | XMS_ITS | Encounter Summary ---
Author Organization [employer] Address [address] [place] [address] 7 [place] [address] Care Team Providers Care Physical Therapy Resident Name Role Phone Giselle Das MD Primary Care Provider [phone] Reason for Visit * Reason Onset Date Comments Appointment Request 03/27/2024 Encounter Details Date Type Department Care Team ([facility] st Contact Info) Description 03/27/2024 Telephone [facility] [address] [place] [address] Giselle Das MD [address] [place] [address] Appointment Request Social History Tobacco Use Types Packs/Day Years Used Date Smoking Tobacco: Never Passive Smoke Exposure: Never Smokeless Tobacco: Never Alcohol Use Standard Drinks/Week Comments Never 0 (1 standard drink = 0.6 oz pur e alcohol) Depression Answer Date Recorded Patient Health Questionnaire-9 Score 0 12/23/2022 Patient Health Questionnaire-9 Score 0 12/23/2022 Last PHQ-9: Questionnaire Data Not on file 1 02/22/2022 Housing Stability Answer Date Recorded What is your housing situation today? I have anabella reyes 12/08/[address] you li ve. Do you have problems with any of the following? None of the above 12/08/2022 Food Insecurity Answer Date Recorded Within the past 12 months, y ou worried that your food would run out before you got money to buy more: Never True 12/08/2022 Within the past 12 months,th e food you bought just didn't last and you didn't have enough money to get more: Never True Transportation Answer Date Recorded In the past 12 months, has l ack of transportation kept you from medical appts, meetings, work or from getting things needed for daily living? No 12/08/2022 Utilities Answer Date Recorded In the past 12 months, has t he electric, gas, oil or water company threatened to shut off services in your home? No 12/08/2022 Depression Answer Date Recorded Patient Health Questionnaire-2 Score 0 12/23/2022 Comments No Sex and Gender Information Value Date Recorded Sex Assigned at Female 12/20/2021 10:18 AM EDT Legal Sex Female 10:18 AM EDT Gender Identity Female 12/20/2021 10:18 AM EDT Sexual Orientation Straight 08/10/2022 10 :58 AM EDT documented as of this encounter Miscellaneous Notes * Telephone Encounter - Stephanie Lopez CNM - 03/28/2024 8:33 AM EST Please schedule yearly [employer] visit with me, not due for pap. Thanks! * Telephone Encounter - Stephanie Lopez CNM - 03/28/2024 8:32 AM EST Last visit with me 09/2022. I will ask Payton to schedule. Please send appointment requests to her in the future, as I do not schedule appointments. Thanks! * Telephone Encounter - Tereso Ziegler - 03/27/2024 3:35 PM EST Tc from pt requesting a Apt with Jessica following up with her. Pt states that She was told by Jessica too fallow up in a Year and states that its been 2. Contact pt at [phone] documented in this encounter Plan of Treatment Not on file documented as of this encounter Visit Diagnoses Not on filedocumented in this encounter Additional Health Concerns Assessment Noted Time PHQ-9 Depression Total Score: 0 12/24/19 23 3:16 PM EDT documented as of this encounter Care Teams Physical Therapy Resident Relationship Specialty Start Date End Date Giselle Das MD [address] [place] [address] PCP - General Family Medicine 11/29/22 documented as of this encounter
--- OUTSIDE RECORDS SUMMARY | 2024-10-29 12:26 | XMS_ITS | Encounter Summary ---
Author Organization [employer] Address [address] [place] [address] Care Team Providers Care Press Operator Helper Name Role Phone Giselle Das MD Primary Care Provider [phone] Encounter Details Date Type Department Care Team (Late st Contact Info) Description 08/09/2024 Orders Only [facility] [address] [place] [address] Giselle Das MD [address] [place] [address] Miscarriage (Primary Dx) Social History Tobacco Use Types [...] housing situation today? I have anabellaraimundo reyes 12/08/[address] you [...] Procedure Name Priority Date/Time Associated Diagnosis Comments HCG, TOTAL, QN Routine 08/12/2024 12:44 PM EDT Miscarriage documented in this encounter Results * hCG, Total, Quantitative (08/12/2024 12:44 PM EDT) HCG Quantitative 13 mIU/mL [facility] Comment:Weeks post LMP Appro ximate hCG(Last Menstrual Period) Range (mIU/ml)3 - 4 weeks 9 - 1304 - 5 weeks 75 - 2,6005 - 6 weeks 850 - 20,8006 - 7 weeks 4000 - 100,2007 - 12 weeks 11,500 - 289,69262 - 16 weeks 18,300 - 137,98968 - 29 weeks (2nd trimester) 1,400 - 53,73215 - 41 weeks (3rd trimester) 940 - 60,000The Mckinney B- hCG assay is used for the early detection ofpregnancy; it cannot be used to diagnose any conditionunrelated to . If a B-hCG level is not supportedby the clinical evidence, results should be confirmed by analternative method (qualitative urine hCG, for example). Blood Venous blood specimen / Unknown 08/12/2024 12:44 PM EDT 08/12/2024 12:44 PM EDT us Giselle Das MD LAB BLOOD ORDERABLES Final Res ult [facility] [address] [place] [address] [phone] documented in this encounter Visit Diagnoses Diagnosis Miscarriage- Primary Unspecified spontaneous without mention of complication documented in this encounter Additional Health Concerns Assessment Noted Time PHQ-9 Depression Total Score: 0 12/24/19 3:16 PM EDT documented as of this encounter Care Teams Press Operator Helper Relationship Specialty Start Date End Date Giselle Das MD [address] [place] [id number] PCP - General Family Medicine 11/29/22 documented as of this encounter
--- OUTSIDE RECORDS SUMMARY | 2024-10-29 12:26 | XMS_ITS | Encounter Summary ---
Author Organization [employer] Address [address] [place] [address] [address]t [place] [address] Care Team Providers Care Parking Enforcement Manager Name Role Phone Giselle Das MD Primary Care Provider Reason for Visit * Reason Onset Date Comments Nurse Triage 10/28/2024 Encounter Details Date Type Department Care Team ([facility] st Contact Info) Description 10/28/2024 Telephone [facility] [address] [place] [address] Giselle Das MD [address] [place] [address] Nurse Triage Social History Tobacco Use Types Packs/Day Years [...] encounter Miscellaneous Notes * Telephone Encounter - Yohana Toledo RN - 10/28/2024 1:33 PM EDT Triage call Pt reports , right knee injury but, isn't aware of how this occurred. Pt reports havinggone to the park and then exercising after and then the knee became swollen and painful. This occurred a week ago and had started getting better for the first 3-4 days. Now Pt reports swelling, pain,the knee has given out x3 once when getting out of the car and twice while walking. Pt reports unable to fully bend or extend leg at this time. Pt has been icing, taking ibuprofen and the last few days is trying to rest the leg as much as possible. Pt reports wrapping the knee and that has helpedto relieve pain and increase mobility. Pt is advised to come to [facility] today to be seen by provider and agrees with this disposition. Hours of operation given. Insurance is verified as active. Protocol Used: Knee Injury (Adult) Protocol-Based Disposition: See in Office or Video Visit within 3 Days Video visit offer not recorded Positive Triage Questions: * Moderate pain (e.g., interferes with normal activities, limping) lasts > 3 days * Knee pain has not improved after 3 days * Knee giving way (or buckling) when walking * All higher-acuity triage questions were negative Care Advice Discussed: * Reassurance and Education - Bending or Twisting Injury (Strain, Sprain) * Treatment of Mild Sprains (Such as a Mild Sprained Knee) * Use a Cold Pack for Pain, Swelling, or Bruising * Use Heat on Area After 48 Hours * Reasons To Call Back - Severe pain lasts over 2 hours after pain medicine and ice pack - Pain not improved after 3 days - Pain or swelling lasts over 2 weeks - Swelling or bruise becomes over 2 inches (5 cm) - You become worse * Telephone Encounter - Sudheer Stevenson - 10/28/2024 1:01 PM EDT Symptom: Knee Injury Outcome: Talk to a nurse or provider within 15 minutes Reason: Severe pain now The caller accepted this outcome. Contact pt at [phone] documented in this encounter Plan of Treatment Not on file documented as of this encounter Visit Diagnoses Not on filedocumented in this encounter Additional Health Concerns Assessment Noted Time PHQ-9 Depression Total Score: 4 09/26/19 25 5:05 PM EDT documented as of this encounter Care Teams Parking Enforcement Manager Relationship Specialty Start Date End Date Giselle Das MD [address] [place] [address] PCP - General Family Medicine 11/29/22 documented as of this encounter
--- OUTSIDE RECORDS SUMMARY | 2024-10-29 12:26 | XMS_ITS | Encounter Summary ---
Author Organization [employer] Address [address] [place] [address] 7t [place] [address] Care Team Providers Care Vamp Stitcher Name Role Phone Giselle Das MD Primary Care Provider [phone] Encounter Details Date Type Department Care Team ([facility] st Contact Info) Description 09/12/2024 Results Follow-Up [facility] [address] [place] [address] Stephanie Lopez CNM [address] [place] [address] Hemoglobin A1c, TSH W/Reflex to FT4, Lipid Panel, Standard, Additional followed-up results: 2 Social History Tobacco Use Types Packs/Day Years [...] as of this encounter Miscellaneous Notes * Result Encounter Note - Stephanie Lopez CNM - 09/16/2024 9:05 AM EDT Could you make sure lab is running testosterone as ordered? Thanks! documented in this encounter Plan of Treatment Not on file documented as of this encounter Visit Diagnoses Not on filedocumented in this encounter Additional Health Concerns Assessment Noted Time PHQ-9 Depression Total Score: 0 12/24/19 23 3:16 PM EDT documented as of this encounter Care Teams Vamp Stitcher Relationship Specialty Start Date End Date Giselle Das MD [address] [place] [id number] PCP - General Family Medicine 11/29/22 documented as of this encounter
--- OUTSIDE RECORDS SUMMARY | 2024-10-29 12:26 | XMS_ITS | Encounter Summary ---
Author Organization [employer] Address [address] [place] [address] [address] [place] [address] Care Team Providers Care Vehicle Body Maker Name Role Phone Giselle Das MD Primary Care Provider [phone] Reason for Visit * Reason Onset Date Comments Nurse Triage 10/25/2024 Encounter Details Date Type Department Care Team ([facility] st Contact Info) Description 10/25/2024 Telephone [facility] MEDICINE [address] [place] [address] Giselle Das MD [address] [place] [address] Nurse Triage Social History Tobacco Use Types [...] encounter Miscellaneous Notes * Telephone Encounter - Gwen Wise RN - 10/25/2024 11:44 AM EDT In past 3 weeks having difficulty with sleep. Pt reports having approx. only 1-3 hours at night. Per pt having difficulty with falling and staying asleep. Pt also increased sleep walking and talking.Pt states no identifiable stressors. Last night did wake up feeling anxious, abdominal cramping. Denies any CP, SOB , chest tightness or palpitations last night. Pt does not see correlation with sx and onset of menses. Pt states was not able to discuss with PCP at last OV. Pt states in past when inhighschool did suffer from the same. Used to take melatonin and trazodone with minimal relief. Pt using benadryl PRN with no good effect. Pt following good sleep hygiene of limiting blue light, heavymeals prior to bed time or increased fluids. Pt states usual wake up time is 6:40am. Pt advised of disposition, agrees to sick onsite with team provider as PCP out of office next week. Reviewed home care advise below and reasons to call back. Protocol Used: Insomnia (Adult) Protocol-Based Disposition: See in Office or Video Visit within 2 Weeks Future Appointments Date Time Provider Department Center 10/29/2024 10:15 AM VALERIE Leyva MEDICINE [facility] 11/20/2024 10:00 AM Stephanie Lopez CNM MEDICINE [facility] Insurance verified as active per Real Time Eligibility in [facility]. Video visit offer not recorded Positive Triage Question: * Insomnia lasts > 2 weeks and no improvement after using Care Advice * All higher-acuity triage questions were negative Care Advice Discussed: * Reassurance and Education - Difficulty Sleeping * Tips for Good Sleep * Tips for Good Sleep - Your Bedroom * Tips for Good Sleep - When You Can't Fall Asleep * Tips for Good Sleep - When Worrying Keeps You Awake * Tips for Good Sleep - What To Avoid * How Much Sleep Is Enough? * Reasons To Call Back - Insomnia symptoms persist over 2 weeks - You become worse Submitted By: [email or web address] - Gwen Wise Submission Date: 10/25/2024 11:03:58 AM Submitted Type: Website Trace Number: [id number] Individual Eligibility Response for: Active Coverage RAUL GRIMM : 1995 Insured ID: [id number] Plan Date: 05/21/2020 - 02/19/9999 * Telephone Encounter - Kb Rodriguez - 10/25/2024 11:08 AM EDT Symptom: Sleeping Difficulty Outcome: Schedule an appointment to be seen within 24 hours Reason: This is the only possible outcome for this symptom The caller accepted this outcome. Pt wanted to speak to nurse about insomnia issues. The patient is asking for an appointment, but it's equally acceptable if the appointment is not required. Contact pt at [phone] documented in this encounter Plan of Treatment Not on file documented as of this encounter Visit Diagnoses Not on filedocumented in this encounter Additional Health Concerns Assessment Noted Time PHQ-9 Depression Total Score: 4 09/26/19 25 5:05 PM EDT documented as of this encounter Care Teams Vehicle Body Maker Relationship Specialty Start Date End Date Giselle Das MD [address] [place] [id number] PCP - General Family Medicine 11/29/22 documented as of this encounter
--- OUTSIDE RECORDS SUMMARY | 2024-10-29 12:26 | XMS_ITS | Encounter Summary ---
Author Organization [employer] Address [address] [place] [address] Street [address] [place] [address] Care Team Providers Care Tin Stacker Name Role Phone Giselle Das MD Primary Care Provider Encounter Details Date Type Department Care Team (Late st Contact Info) Description 01/17/2023 Abstract [facility] [address] [place] [address] Rasheed Romeo, DMD [address] [place] [address] Social History Tobacco Use Types Packs/Day Years [...] documented as of this encounter Care Teams Tin Stacker Relationship Specialty Start Date End Date Giselle Das MD [address] [place] [phone] PCP - General Family Medicine 11/29/22 documented as of this encounter
--- OUTSIDE RECORDS SUMMARY | 2024-10-29 12:26 | XMS_ITS | Encounter Summary ---
Author Organization [employer] Address [address] [place] [address] [address] [place] [address] Care Team Providers Care Floors Buffer Name Role Phone Giselle Das MD Primary Care Provider [phone] Reason for Visit * Reason Comments Med Change Request Encounter Details Date Type Department Care Team ([facility] Contact Info) Description 05/19/2023 Refill [facility] MEDICINE [address] [place] [address] Diane Rodgers MD [address] [place] [address] Upper abdominal pain Social History Tobacco Use Types Packs/Day Years [...] documented as of this encounter Visit Diagnoses Diagnosis Upper abdominal pain documented in this encounter Additional Health Concerns Assessment Noted Time PHQ-9 Depression Total Score: 0 12/24/19 3:16 PM EDT documented as of this encounter Care Teams Floors Buffer Relationship Specialty Start Date End Date Giselle Das MD [address] [place] [id number] PCP - General Family Medicine 11/29/22 documented as of this encounter
--- OUTSIDE RECORDS SUMMARY | 2024-10-29 12:26 | XMS_ITS | Encounter Summary ---
Author Organization [employer] Address [address] [place] [address] Street [address] [place] [address] Care Team Providers Care Power Wood Sawyer Name Role Phone Giselle Das MD Primary Care Provider [phone] Encounter Details Date Type Department Care Team (Latest Contact Info) Description 10/28/2024 Travel Social History Tobacco Use Types Packs/Day [...] documented as of this encounter Care Teams Power Wood Sawyer Relationship Specialty Start Date End Date Giselle Das MD [address] [place] [address] PCP - General Family Medicine 11/29/22 documented as of this encounter
--- OUTSIDE RECORDS SUMMARY | 2024-10-29 12:26 | XMS_ITS | Encounter Summary ---
Author Organization [employer] Address [address] [place] [address] [address] [place] [address] Care Team Providers Care Slate Handler Name Role Phone Love Lewis Primary Care Provider Hedy Giselle Rolle MD Primary Care Provider [phone] Encounter Details Date Type Department Care Team (Latest Contact Info) Description 06/21/2021 Abstract [facility] Dental, Provider, DDS Social History Tobacco [...] on filedocumented in this encounter Care Teams Slate Handler Relationship Specialty Start Date End Date Love Lewis FNP PCP - General Family Medicine 08/20/21 11/28/22 Giselle Das MD [address] [place] [address] PCP - General Family Medicine 11/29/22 documented as of this encounter
--- OUTSIDE RECORDS SUMMARY | 2024-10-29 12:26 | XMS_ITS | Clinical Summary ---
Author Organization [employer] Address [address] [place] [address] [address] [place] [address] Care Team Providers Care Model And Mold Maker Name Role Phone Giselle Das MD Primary Care Provider [phone] Allergies Active Allergy Reactions Criticality Noted Date Comments Elgin Oil 08/17/2022 Prednisone Headache 11/15/2022 Cetirizine Hives 09/21/2022 Medications fexofenadine (Leslie) 180 MG tablet Take 1 tablet (180 mg) by mouth in the morning. 30 tablet 11 3 Active fluticasone (Flonase) 50 MCG/ACT nasal sprayIndications :Seasonal allergic rhinitis, unspecified trigger Administer 2 sprays into each nostril in the morning. Shake gently. Before first use, prime pump. After use, clean tip and replace cap. 16 g 2 3 Active diphenhydrAMINE (BENADryl) 25 MG tabletIndication s:Seasonal allergic rhinitis, unspecified trigger Take 1 tablet (25 mg) by mouth every 8 (eight) hours if needed for itching. 90 tablet 1 3 Active albuterol 108 (90 Base) MCG/ACT inhalerIndicatio ns:URI, acute 2 puffs by Inhalation route every 4 hours ;administer with spacer prn shortness of breath or wheezing 18 g 1 4 Active Vit-Fe Fumarate-FA ( Plus) 27-1 MG tablet Take 1 tablet by mouth Once per day. 30 tablet 11 5 Active Active Problems Problem Noted Date Diagnosed Date Cubital tunnel syndrome on left 09/30/2024 Assessment & Plan (09/30/2024 8:21 AM EDT): PT exercises given Use of OTC bracing explained Arm paresthesia, left 12/25/2022 Assessment & Plan (12/25/2022 8:30 PM EST): Refer for EMG Skin tag 12/25/2022 Assessment & Plan (12/25/2022 8:34 PM EST): Refer to derm Dental calculus 10/27/2022 Dental abscess 10/12/2022 Bunion of great toe of right foot 09/09/2022 Overview (09/09/2022): Hx of foot injury in adolescence/fracture. R medial bunion. Evaluated by Podiatry in the past. Spur in the R ankle found in the past as well Assessment & Plan (09/09/2022 11:45 AM EDT): Bunion present, symptomatic Refer to podiatry for eval F/u PRN Seasonal allergic conjunctivitis 08/01/2018 Nonalcoholic fatty liver disease 01/18/2018 Mild intermittent asthma 09/28/2017 Vitamin D deficiency 04/29/2016 Dermatographic urticaria 04/29/2016 Insomnia 04/29/2016 Carpal tunnel syndrome 04/19/2013 Allergic rhinitis 05/15/2012 Overview (09/09/2022): Seen at [facility] 07/20/22 for nasal congestion. Treating with leslie and azelastine spray. Also received a short course of Sudafed. Assessment & Plan (12/28/2022 5:20 PM EST): Symptoms started 2 days ago, denied fever/chills, nausea/cough, no sore throat. Complains of sinus congestion, no tenderness. Will prescribe sudafed, keep well hydrated, continue with Flonase and saline nasal spray Assessment & Plan (09/09/2022 11:50 AM EDT): Completed Sudafed Not interested in an sales recruiting coordinator currently. Continue Leslie Discontinue azelastine spray, not helping Rx Flonase Rx Benadryl to help with nighttime allergy sx F/u PRN Obesity 07/05/2011 Resolved Problems Problem Noted Date Diagnosed Date Resolved Date Upper abdominal pain 05/12/2023 025 Assessment & Plan (05/12/2023 1:33 PM EDT): Likely gastroenteritis Nausea & vomiting 05/12/2023 09/30/2024 Acute non-recurrent maxillary sinusitis 03/31/2023 09/30/2024 Assessment & Plan (03/31/2023 11:56 AM EST): Likely sinus infection, pt will update if symptoms persist over weekend, will call on Monday or Monday at which time pt may benefit from abx or sudafed. Pt will also update regarding status URI, acute 03/31/2023 09/30/2024 Assessment & Plan (03/31/2023 11:55 AM EST): Neg poc testing, likely sinus infection reviewed supportive measures, Health care maintenance 08/17/202209/20 Overview (09/09/2022): Routine Health Maintenance: F/u 1 month with Diomedes for IUD replacement Immunizations: Up to date HIV: Ordered 08/17/22 Hep C: Ordered 08/17/22 Hepatitis B: Ordered 08/17/22 Pap Smear: 2019, no records. Mammogram: not due yet Lung cancer: Never smoker Eye: Discuss next visit Dental: Discuss next visit IUD contraception 01/18/2018 08/05/2024 Encounters Date Type Department Care Team Description 10/29/2024 10:15 AM EDT Telemedicine [facility] [address] [place] [phone] Anabel Beltrán FNP Arrived 10/29/2024 Travel 10/28/2024 5:00 PM EDT Office Visit [facility] [address] [place] [address] Rikki Van MD Acute pain of left knee (Primary Dx) 10/28/2024 Travel 10/28/[address] [address] Anabel Beltrán FNP Appointment Request 10/28/[address] [address] Giselle Das MD Appointment Request 10/28/[address] [phone] Giselle Das MD Nurse Triage 10/26/2024 Travel 10/25/[address] [phone] Giselle Das MD CHARTPREP 10/25/[address] [address] Giselle Das MD Nurse Triage 09/25/2024 3:45 PM EDT Office Visit [address] [address] Giselle Das MD Bunion of great toe of right foot (Primary Dx); Mild intermittent asthma without complication; Dietary counseling; Exercise counseling; Class 3 severe obesity with serious comorbidity and body mass index (BMI) of 50.0 to 59.9 in adult, unspecified obesity type; Vitamin D deficiency; Arm paresthesia, left; Cubital tunnel syndrome on left 09/25/2024 Travel 09/24/2024 Travel 09/24/[address] [address] Giselle Das MD chart prep 09/12/2024 Results Follow-Up [address] [address] Diomedes Blackburn CNM Hemoglobin A1c, TSH W/Reflex to FT4, Lipid Panel, Standard, Additional followed-up results: 2 08/28/2024 Orders Only [address] [address] Diomedes Blackburn CNM PCOS (polycystic ovarian syndrome) (Primary Dx) 08/12/2024 Results Follow-Up [facility] [address] [place], [place] [phone] Juhi Spring FNP hCG, Total, Quantitative, hCG, Total, Quantitative 08/09/2024 Orders Only [address] [address] Giselle Das MD Miscarriage (Primary Dx) 08/09/[address] [address] Giselle Das MD Call Back Request 08/07/2024 Results Follow-Up [address] [address] Diomedes Blackburn CNM hCG, Total, Quantitative 08/05/2024 1:30 PM EDT Office Visit [address] [address] Diomedes Blackburn CNM Bleeding in early (Primary Dx) 08/05/2024 Travel 08/05/2024 Orders Only [address] [address] Giselle Das MD Early stage of (Primary Dx) 08/02/2024 Travel 07/31/[address] [address] Giselle Das MD Lab Orders (/) 07/30/[address] [phone] Giselle Das MD Nurse Triage from Last 3 Months Immunizations Immunization Administration Dates Next Due DTaP 06/19/2000, 8,1996,10/15,1996 HPV, Quadrivalent 05/17/2007,01/18/2007,11/17/19 07 Hep A, Adult 04/03/2015 Hep A, ped/adol, 2 dose 04/03/2015,02/26/2013 Hep B, Adolescent or Pediatric 1996,1996,1996 Hib (HbOC) 09/19/1997, 7,1996,08/16 INFLUENZA INJECTABLE QUADRIV ALANT CCIIV4 MDCK Multi-dose vial 11/07/2018 IPV 1996,1996,1996 Influenza injectable quadriv alent IIV4 with preservative 12/06/2017,11/04/2015 Influenza injectable quadriv alent preservative free 12/23/2022,12/03/2020,01/27/2020,12/08,11/13/2014,12/26/2013 Influenza, IIV3, injectable 12/21/2007 Influenza, Split (incl. tato fied surface antigen) 02/26/2013,01/10/2012,10/18/2011 Influenza, seasonal, injecta ble, preservative free 11/23/2023,01/04/2011,12/16/2008 MMR 06/19/2000,07/08/1997 Meningococcal MCV4P ACYW-135 04/03/2015 Meningococcal MPSV4 12/21/2007 Pneumococcal Polysaccharide PPSV23 11/23/2015 Tdap 12/17/2021,01/18/2018,10/01/2007 Varicella 12/21/2007,07/08/1997 Social History Tobacco Use Types Packs/Day Years Used Date Smoking Tobacco: Never Passive Smoke Exposure: Never Smokeless Tobacco: Never Tobacco Cessation:Counseling Given: Not Answered Alcohol Use Standard Drinks/Week Comments Never 0 [...] Q2 Not on file 09/25/2024 Comments No Intention Date Recorded Wants to become (finding) 08/05 Sex and Gender Information Value Date Recorded Sex Assigned at Female 12/20/2021 10:18 AM EDT Legal Sex Female 10:18 AM EDT Gender Identity Female 12/20/2021 10:18 AM EDT Sexual Orientation Straight 08/10/2022 10 :58 AM EDT Last Filed Vital Signs Vital Sign Reading Time Taken Comments Blood Pressure 145/71 10/28/2024 4:57 PM EDT Pulse 85 10/28/2024 4:57 PM EDT Temperature 37.2 C (98.9 F) 10/28/2024 4:57 PM EDT Respiratory Rate 20 10/28/2024 4:57 PM EDT Oxygen Saturation 90% 10/28/2024 4:57 PM EDT Inhaled Oxygen Concentration - - Weight 109 kg (240 lb 9.6 oz) 10/28/2024 4:57 PM EDT Height 147.3 cm (4' 10 ) 09/25/2024 4:24 PM EDT Body Mass Index 50.29 09/25/2024 4:24 PM EDT Plan of Treatment Health Maintenance Due Date Last Done Comments IPV Vaccines (4 of 4 - 4-dose series) 2000 1996, 1996, 1996 Pneumococcal Vaccine: Pediatrics (0 to 5 Years) and At-Risk Patients (6 to 49) Years (2 of 2 - PCV) 11/22/2016 11/23/2015 Dental Oral Exam 04/28/2023 10/27/2022, 03/2021, 12/17/2014, Additional history exists Dental Prophylaxis 04/28/2023 10/27/2022, 0 06/21/2021, 12/17/2014, Additional history exists Dental X-Ray: Bitewings 10/29/2023 10/28/19 23, 06/21/2021, 12/17/2014, Additional history exists Dental X-Ray: Full Mouth 06/22/2024 06/21/2021, 10/21 COVID-19 Vaccine ( season) 2024 06/12/2020, 05/15/2020 Influenza Vaccine (#1) 2024 , 12/23/2022, 12/03/2020, Additional history exists Family Planning (PISQ) 08/05/2025 08/05/2024 Pap Smear 09/21/2025 09/21/2022 Disability Screening 09/24/2025 09/24/2024 Alcohol/Substance Use Screening 09/25/2025 09/25/2024 Depression Screening 09/25/2025 09/25/2024, 09/26/19 SDOH Screening 09/25/2025 09/25/2024 Tobacco Screening 10/29/2025 10/29/2024 Lipid Panel 09/12/2029 09/12/2024, 09/20/2022 DTaP/Tdap/Td Vaccines (9 - Td or Tdap) 12/18/2031 12/17/2021, 01/18/2018, 10/01/2007, Additional history exists Zoster Vaccines (1 of 2) 2046 RSV Patients and Patients Aged 60 years or older (1 - 1-dose 75+ series) 06/16/2071 Hepatitis B Vaccines Completed 1996, 1996, 1996 HIB Vaccines Completed 09/19/1997, 11/21, 1996, Additional history exists HPV Vaccines Completed 05/17/2007, 12/22, 11/16/2006 Hepatitis A Vaccines Completed 04/03/2015, 04/03/2015, 02/26/2013 Meningococcal Vaccine Completed 04/03/2015, 008 HIV Screening Completed 09/20/2022 Hepatitis C Screening Completed 09/20/2022 Meningococcal B Vaccine Aged Out No l onger eligible based on patient's age to complete this topic RSV under 20 months Aged Out No longe r eligible based on patient's age to complete this topic Rotavirus Vaccines Aged Out No longer eligible based on patient's age to complete this topic Procedures Procedure Name Priority Date/Time Associated Diagnosis Comments XR KNEE 4+ VIEWS LEFT Routine 10/29/2024 10:48 AM EDT Acute pain of left knee US PELVIS TRANSVAGINAL Urgent 09/12/2024 2:04 PM EDT PCOS (polycystic ovarian syndrome) LIPID PANEL, STANDARD Routine 09/12/2024 8:37 AM EDT PCOS (polycystic ovarian syndrome) HEMOGLOBIN A1C Routine 09/12/2024 8:37 AM EDT PCOS (polycystic ovarian syndrome) PROLACTIN Routine 09/12/2024 8:37 AM EDT PCOS (polycystic ovarian syndrome) TSH W/REFLEX TO FT4 Routine 09/12/2024 8 :37 AM EDT PCOS (polycystic ovarian syndrome) TESTOSTERONE, TOTAL, MALES (ADULT), IA Routine 09/12/2024 8:37 AM EDT PCOS (polycystic ovarian syndrome) HCG, TOTAL, QN Routine 08/22/2024 12:58 PM EDT Miscarriage HCG, TOTAL, QN Routine 08/15/2024 12:56 PM EDT Elevated serum hCG HCG, TOTAL, QN Routine 08/12/2024 12:44 PM EDT Miscarriage HCG, TOTAL, QN Routine 08/07/2024 8:09 AM EDT Bleeding in early HCG, TOTAL, QN Routine 08/05/2024 9:47 AM EDT Early stage of HCG, TOTAL, QN Routine 08/01/2024 12:58 PM EDT Procreative management Full PROPHYLAXIS - ADULT Routine 10/27/2022 2:00 PM EDT Dental calculus BITEWINGS - 4 RADIOGRAPHIC IMAGES Routine 10/27/2022 2:00 PM EDT Dental calculus PERIODIC ORAL EVALUATION - ESTABLISHED PATIENT Routine 10/27/2022 2:00 PM EDT PAP SMEAR Routine 09/21/2022 12:00 AM EDT HEPATITIS C VIRAL RNA, QUANTITATIVE, REAL-TIME PCR Routine 09/20/2022 8:24 AM EDT Health care maintenance HIV ANTIBODY/ANTIGEN ([place] DPH) Routine 09/20/2022 8:24 AM EDT INTRAORAL - COMPLETE SERIES OF RADIOGRAPHIC IMAGES Routine 06/21/2021 12:00 AM EDT from Last 3 Months or Most Recently Relevant to Health Maintenance Results * XR Knee 4+ Views Left (10/29/2024 10:48 AM EDT) Anatomical Region Laterality Modality Lower Extremities, Knee Left Radiogra phic Imaging 10/29/2024 10:4 8 AM EDT Narrative 10/29/2024 11:02 AM EDT [place] [address] XRay Report Signed Patient: Deysi Doyle MR# : [id number] : 1995 Acct:[id number] Age/Sex: 29 / F ADM Date: 10/29/24 Loc: HO.XRAY Attending Dr: Rikki Van MD Ordering Physician: Rikki Van MD Date of Service: 10/29/24 Procedure(s): XR knee LT 4V Accession Number(s): [id number] cc: Giselle Das; Rikki Van MD Reason [...] Iraj Salazar MD 10/29/2024 10:59 AM EDT RP Dictated By: Iraj Salazar MD Signed By: <Electronically signed by Iraj Salazar MD in OV> 10/29/24 1059 DD/ 1048 TD/TT: 10/29/24 1055 [employer] Power Plant Manager: Procedure Note Donotuseinterpreter, Image - 10/29/[address] [address] XRay Report Signed Patient: Deysi Doyle MMR# : [id number] : 1995Acct:[id number] Age/Sex: 29 FADM Date: 10/29/24 Loc: [facility] Attending Dr: Rikki Van MD Ordering Physician: Rikki Van MD Date of Service: 10/29/24 Procedure(s): XR knee LT 4V Accession Number(s): [id number] cc: Giselle Das; Rikki Van MD Reason [...] Iraj Salazar MD 10/29/2024 10:59 AM EDT RP Dictated By: Iraj Salazar MD Signed By: <Electronically signed by Iraj Salazar MD in OV> 10/29/24 1059 DD/ 1048 TD/TT: 10/29/24 1055 [employer] Power Plant Manager: us Rikki Van MD IMG XR PROCEDURES Edited Result - Final * US Pelvis Transvaginal (09/12/2024 2:04 PM EDT) Anatomical Region Laterality Modality Pelvis Ultrasound 09/12/2024 2:04 PM EDT Narrative 09/12/2024 2:43 PM EDT [address] [address] Ultrasound Report Signed Patient: Deysi Doyle MR# : [id number] : 1995 Acct:[id number] Age/Sex: 29 / F ADM Date: 09/12/24 Loc: HO.US Attending Dr: Diomedes Blackburn CNM Ordering Physician: DIOMEDES BLACKBURN CNM Date of Service: 09/12/24 Procedure(s): US pelvic and transvaginal Accession Number(s): [id number] cc: Giselle Das; DIOMEDES BLACKBURN CNM EXAMINATION: US PELVIS CLINICAL INFORMATION: Irregular menses, polycystic ovarian syndrome COMPARISON: CT January 06, 2018 TECHNIQUE: Ultrasound of the pelvis is performed using both transabdominal and transvaginal transducers along with Doppler. Transvaginal imaging is performed due to inadequate visualization transabdominally. FINDINGS: Uterus: The uterus measures 7.3 x 1.7 x 2.1 cm. The double wall endometrial thickness is 1.4 mm. The uterus is smooth in contour and has normal myometrial echogenicity. No visible fibroid. Adnexa: Both ovaries are visualized. There is normal color flow to the adnexa. There is no ovarian torsion. There is no pelvic ascites or fluid collection. Right ovary measures 2.6 x 2.2 x 1.9 cm. Volume is within normal limits measuring 6 mL. No prominent follicles are identified. Left ovary measures 2.5 x 2.4 x 1.8 cm. Volume is within normal limits at 6 mL Numerous small peripheral follicles are present. US/US pelvic and transvaginal IMPRESSION: Unremarkable pelvic ultrasound. Electronically signed by: Iraj Salazar MD 09/12/2024 02:40 PM EDT Dictated By: Iraj Salazar MD Signed By: <Electronically signed by Iraj Salazar MD in OV> 09/12/24 1440 DD/ 1404 TD/TT: 09/12/24 1417 [employer] Power Plant Manager: Procedure Note Donotuseinterpreter, Image - 09/12/[address] [address] Ultrasound Report Signed Patient: Deysi Doyle [facility]# : [id number] : 1995Acct:[id number] Age/Sex: 29 / FADM Date: 09/12/24 Loc: HO.US Attending Dr: Diomedes Blackburn CNM Ordering Physician: DIOMEDES BLACKBURN CNM Date of Service: 09/12/24 Procedure(s): US pelvic and transvaginal Accession Number(s): [id number] cc: Giselle Das; DIOMEDES BLACKBURN CNM EXAMINATION: US PELVIS CLINICAL INFORMATION: Irregular menses, polycystic ovarian syndrome COMPARISON: CT January 06, 2018 TECHNIQUE: Ultrasound of the pelvis is performed using both transabdominal and transvaginal transducers along with Doppler. Transvaginal imaging is performed due to inadequate visualization transabdominally. FINDINGS: Uterus: The uterus measures 7.3 x 1.7 x 2.1 cm. The double wall endometrial thickness is 1.4 mm. The uterus is smooth in contour and has normal myometrial echogenicity. No visible fibroid. Adnexa: Both ovaries are visualized. There is normal color flow to the adnexa. There is no ovarian torsion. There is no pelvic ascites or fluid collection. Right ovary measures 2.6 x 2.2 x 1.9 cm. Volume is within normal limits measuring 6 mL. No prominent follicles are identified. Left ovary measures 2.5 x 2.4 x 1.8 cm. Volume is within normal limits at 6 mL Numerous small peripheral follicles are present. US/US pelvic and transvaginal IMPRESSION: Unremarkable pelvic ultrasound. Electronically signed by: Iraj Salazar MD 09/12/2024 02:40 PM EDT Dictated By: Iraj Salazar MD Signed By: <Electronically signed by Iraj Salazar MD in OV> 09/12/24 1440 DD/ 1404 TD/TT: 09/12/24 1417 [employer] Power Plant Manager: Diomedes Blackburn [facility] IMG US PROCEDURES Edited Result - Final * TSH W/Reflex to FT4 (09/12/2024 8:37 AM EDT) TSH reflex Free T4 2.21 0.32 - 4.0 uIU/mL [facility] Blood Venous blood specimen / Unknown 09/12/2024 8:37 AM EDT 09/12/2024 8:37 AM EDT [facility] LAB BLOOD ORDERABLES Soco l Result Performing Organization Address [facility] Co de Phone Number [facility] [address] [place] [address] [phone] * Prolactin (09/12/2024 8:37 AM EDT) Pathologist [facility] Prolactin 10.2 ng/mL [facility] Comment:Reference Range Fema les Non- 3.0-30.0 10.0-209.0 Postmenopausal 2.0-20.0THIS TEST WAS PERFORMED AT:[employer] [address] [address]HGWHKEDENILSON HERNANDEZ MD Blood Venous blood specimen / Unknown 09/12/2024 8:37 AM EDT 09/12/2024 8:37 AM EDT [facility] LAB BLOOD ORDERABLES Soco l Result Performing Organization Address City/[facility]/ZIP Co de Phone Number [facility] [address] [place] [phone] * Testosterone, Total, males (Adult), IA (09/12/2024 8:37 AM EDT) Testosterone, Total 39 2 - 45 ng/dL [facility] Comment:For additional infor gali, please refer tohttp://education.DigiMeld/faq/ZdvsuSfkjmgdjobodRKFZMWSXB305(This link is being provided for informational/educational purposes only.)This test was developed and its analytical performancecharacteristics have been determined by [employer] [place], [place]. It hasnot been cleared or approved by the U.S. Food and DrugAdministration. This assay has been validated pursuantto the CLIA regulations and is used for clinicalpurposes.THIS TEST WAS PERFORMED AT:[employer] [place] [address]UEJDHOWCASEY MENDIETA MD,PHD Blood Venous blood specimen / Unknown 09/12/2024 8:37 AM EDT 09/12/2024 8:37 AM EDT Diomedes Blackburn [facility] LAB BLOOD ORDERABLES Soco l Result Performing Organization Address [facility]/ZIP Co de Phone Number [facility] [address] [place] [phone] * Hemoglobin A1c (09/12/2024 8:37 AM EDT) Hemoglobin A1c 5.4 <6.0 % [facility] Comment:Hemoglobin A1C Refer ence Range Adults: 4.8 - 6.0 % Non diabetic: < 6.0 % Goal: < 7.0 %Additional Action Suggested: > 8.0 %Note: Hemoglobin A1c results are invalid for patients with abnormal amounts of HbF. Blood transfusions may impact the HbA1c concentration in the patient sample. Estimated Average Glucose 108 mg/dL [facility] Comment:eAG = Estimated ave rage glucose which is %A1C expressed asaverage glucose, using the formula of the L3U-YolkvxdZiscfnu Glucose study (ADAG), Diabetes Care, Vol.31,#8,Sep. 2007 Blood Venous blood specimen / Unknown 09/12/2024 8:37 AM EDT 09/12/2024 8:37 AM EDT [facility] BLOOD ORDERABLES Soco l Result Performing Organization Address [facility]/ZIP Co de Phone Number [facility] [address] [place] [phone] * (ABNORMAL) Lipid Panel, Standard (09/12/2024 8:37 AM EDT) Triglycerides 110 <150 mg/dL [facility] Comment:Desirable Triglyceri de: less than 150 mg/dLBorderline High Triglyceride 150-199 mg/dLHigh Triglyceride: 200-499 mg/dLVery High Triglyceride: greater than or equal to 5OO mg/dL Cholesterol 192 <200 mg/dL [facility] Comment:Desirable Cholestero l: less than 200 mg/dLBorderline High Cholesterol: 200-239 mg/dLHigh Cholesterol: greater than 239 mg/dL LDL Cholesterol Calculated 122(H) <100 mg/dL [facility] Comment:Desirable LDL: less than 100 mg/dLNear Optimal/Above Optimal LDL: 110- 129 mg/dLBorderline High LDL: 130-159 mg/dLHigh LDL: 160-189 mg/dLVery High LDL: greater than or equal to 190 mg/dL HDL Cholesterol 48 >40 mg/dL [facility] Comment:Desirable HDL: great er than 40 mg/dL Note: This HDL assay may give artificially low results in patients with liver disease. Blood Venous blood specimen / Unknown 09/12/2024 8:37 AM EDT 09/12/2024 8:37 AM EDT us Diomedes Blackburn [facility] LAB BLOOD ORDERABLES Soco l Result [facility] [address] [place] [address] [phone] * hCG, Total, Quantitative (08/22/2024 12:58 PM EDT) Only the most recent of6 resultswithin the time period is included. HCG Quantitative <2 mIU/mL [facility] Comment:Weeks post LMP Appro ximate hCG(Last Menstrual Period) Range (mIU/ml)3 - 4 weeks 9 - 1304 - 5 weeks 75 - 2,6005 - 6 weeks 850 - 20,8006 - 7 weeks 4000 - 100,2007 - 12 weeks 11,500 - 289,63838 - 16 weeks 18,300 - 137,78502 - 29 weeks (2nd trimester) 1,400 - 53,06682 - 41 weeks (3rd trimester) 940 - 60,000The Mckinney B- hCG assay is used for the early detection ofpregnancy; it cannot be used to diagnose any conditionunrelated to . If a B-hCG level is not supportedby the clinical evidence, results should be confirmed by analternative method (qualitative urine hCG, for example). Blood Venous blood specimen / Unknown 08/22/2024 12:58 PM EDT 08/22/2024 12:58 PM EDT us Giselle Das MD LAB BLOOD ORDERABLES Final Res ult [facility] [address] [place] [phone] * Pap Smear (09/21/2022 12:00 AM EDT) 09/21/2022 09/22/2022 8:0 0 AM EDT Narrative [facility] - 10/13/2022 1:24 PM EDT ----- ------- Name: Deysi Doyle Age/Sex: 27/F : 1995 Unit#: [id number] Attend Dr: DIOMEDES BLACKBURN CNM Re09/21/22 Status: DEP [facility] Disch: ----- ------- SPEC : [id number] RECD: 09/22/22 STATUS: GREY CHEEMA NUM: [id number] RENARD: 09/21/22-[address]: DIOMEDES BLACKBURN CNM ENTERED: 09/22/22-1140 SP TYPE: Pap Smr OTHR DR: ORDERED: Pap Smear Interpretation Satisfactory for evaluation. No endocervical cells seen. Coccobacilli consistent with shift in vaginal jaswant. Negative for intraepithelial lesion or malignancy. Clinical Information LMP: Unknown date Previous PAP test: Unknown date/findings Material Received ThinPrep-Vaginal/Cervical ----- ------- Signed (signature on file) NALDO [place] (ASC) 10/13/22 1324 ----- ------- END OF REPORT Diomedes JACOBO LAB CYTOLOGY ORDERABLES F inal Result [facility] [address] [place] [phone] * HIV Ab/Ag ([facility]) (09/20/2022 8:24 AM EDT) Pathologist [facility] HIV AB/AG Nonreactive Nonreactive [facility] Comment:HIV-1 p24 Ag and/or HIV-1/HIV-2 Ab not detected.A test result that is nonreactive does not exclude thepossibility of exposure to or infection with HIV-1 and/orHIV-2. Nonreactive results in this assay for individualswith prior exposure to HIV-1 and/or HIV-2 may be due toantigen and antibody levels that are below the limit ofdetection of this assay.The [facility] HIV Ag/Ab Combo assay result andsupplemental assay results should be interpreted inconjunction with the patient's clinical presentation,history and other laboratory results. If the results areinconsistent with clinical evidence, additional testing issuggested to confirm the result. 09/20/2022 8:24 AM EDT 09/20/2022 8:24 AM EDT Lvoe Lewis [facility] LAB BLOOD ORDERABLES Final Result [facility] [address] [place] [address] [phone] * Hepatitis C Viral RNA, Quantitative, Real-Time PC (09/20/2022 8:24 AM EDT) [facility] Hepatitis C Viral Load <15 NOT DETECTED NOT DETECTED IU/mL [facility] HCV Log PCR <1.18 NOT DETECTED NOT DETECTED Log IU/mL [facility] Comment:This test was perfor med using Real-Time Polymerase ChainReaction.Reportable Range: 15 IU/mL to 100,000,000 IU/mL(1.18 Log IU/mL to 8.00 Log IU/mL).The analytical performance characteristics of thisassay have been determined by [employer].The modifications have not been cleared or approved bythe FDA. This assay has been validated pursuant to theCLIA regulations and is used for clinical purposes.For more information on this test, go to:http://education.Tins.ly.Teach The People/faq/YWS40l1(This link is being provided for informational/educational purposes only.)THIS TEST WAS PERFORMED AT:[employer] [place] [id number] HERNANDEZ MD 09/20/2022 8:24 AM EDT 09/20/2022 8:24 AM EDT us Love Lewis TEST ENGINEER LAB BLOOD ORDERABLES Final Result [facility] [address] [place] [address] [phone] from Last 3 Months or Most Recently Relevant to Health Maintenance Insurance [employer] [facility] Care Teams Model And Mold Maker Relationship Specialty Start Date End Date Giselle Das MD [address] [place] [id number] PCP - General Family Medicine 11/29/22
--- OUTSIDE RECORDS SUMMARY | 2024-10-29 12:26 | XMS_ITS | Encounter Summary ---
Author Organization [employer] Address [address] [place] [address] Street [address] [place] [address] Care Team Providers Care Peer Tutor Name Role Phone Giselle Das MD Primary Care Provider [phone] Encounter Details Date Type Department Care Team (Latest Contact Info) Description 10/26/2024 Travel Social History Tobacco Use Types Packs/Day [...] documented as of this encounter Care Teams Peer Tutor Relationship Specialty Start Date End Date Giselle Das MD [address] [place] [address] PCP - General Family Medicine 11/29/22 documented as of this encounter
--- OUTSIDE RECORDS SUMMARY | 2024-10-29 12:26 | XMS_ITS | Encounter Summary ---
Author Organization [employer] Address [address] [place] [address] 7 [place] [address] Care Team Providers Care Consultant Intern Name Role Phone Giselle Das MD Primary Care Provider [phone] Reason for Visit * Reason Onset Date Comments Appointment Request 10/28/2024 Encounter Details Date Type Department Care Team ([facility] st Contact Info) Description 10/28/2024 Telephone [facility] MEDICINE [address] [place] [address] Giselle Das MD [address] [place] [address] Appointment Request Social History Tobacco Use Types [...] encounter Miscellaneous Notes * Telephone Encounter - Sudheer Stevenson - 10/28/2024 1:02 PM EDT Tc from pt requesting if SO apt scheduled tomorrow can be made a telephone visit Contact pt at [phone] documented in this encounter Plan of Treatment Not on file documented as of this encounter Visit Diagnoses Not on filedocumented in this encounter Additional Health Concerns Assessment Noted Time PHQ-9 Depression Total Score: 4 09/26/19 25 5:05 PM EDT documented as of this encounter Care Teams Consultant Intern Relationship Specialty Start Date End Date Giselle Das MD [address] [place] [address] PCP - General Family Medicine 11/29/22 documented as of this encounter
== END 2024-10-29 10:35 | disposition home or self-care (01) ==
LOC: HO.XRAY 10:34
PROVIDERS: PCP General Practice; Visit Provider Family Medicine
DX: M25.562 Pain in left knee (principal)
CPT/HCPCS: 73564

== ENCOUNTER → 2024-10-29 10:38 | Outpatient (BNV) | payer OTHER, SELFPAY | PROVIDERS: PCP General Practice; Visit Provider Radiology Diagnostic Radiology | DX: M25.462 Effusion, left knee (principal) | CPT/HCPCS: 73564 ==

== ENCOUNTER 2025-01-01 09:35 | Outpatient (REF) | payer OTHER, SELFPAY ==
--- OUTSIDE RECORDS SUMMARY | 2025-01-01 10:54 | XMS_ITS | Encounter Summary ---
Author Organization [employer] Address [address] [place] [address] [address]t [place] [address] Care Team Providers Care Automated Process Operator Name Role Phone Giselle Das MD Primary Care Provider [phone] Reason for Visit * Reason Comments Med Change Request Encounter Details Date Type Department Care Team ([facility] Contact Info) Description 05/19/2023 Refill [facility] MEDICINE [address] [place] [address] Diane Rodgers MD [address] [place] [address] Upper abdominal pain Social History Tobacco Use [...] documented as of this encounter Care Teams Automated Process Operator Relationship Specialty Start Date End Date Giselle Das MD [address] [place] [address] PCP - General Family Medicine 11/29/22 documented as of this encounter
--- OUTSIDE RECORDS SUMMARY | 2025-01-01 10:54 | XMS_ITS | Encounter Summary ---
Author Organization [employer] Address [address] [place] [address] 7 [place] [address] Care Team Providers Care Lettuce Cutter Name Role Phone Giselle Das MD Primary Care Provider [phone] Reason for Visit * Reason Onset Date Comments Appointment Request 10/28/2024 Encounter Details Date Type Department Care Team ([facility] st Contact Info) Description 10/28/2024 Telephone [facility] MEDICINE [address] [place] [address] Giselle Das MD [address] [place] [address] Appointment Request Social History Tobacco Use Types [...] made a telephone visit Contact pt at [phone] documented in this encounter Plan of Treatment Not on file documented as of this encounter Visit Diagnoses Not on filedocumented in this encounter Additional Health Concerns Assessment Noted Time PHQ-9 Depression Total Score: 4 09/26/19 25 5:05 PM EDT documented as of this encounter Care Teams Lettuce Cutter Relationship Specialty Start Date End Date Giselle Das MD [address] [place] [address] PCP - General Family Medicine 11/29/22 documented as of this encounter
--- OUTSIDE RECORDS SUMMARY | 2025-01-01 10:54 | XMS_ITS | Encounter Summary ---
Author Organization [employer] Address [address] [place] [address] Care Team Providers Care Logistics System Engineer Name Role Phone Giselle Das MD Primary Care Provider [phone] Encounter Details Date Type Department Care Team (Late st Contact Info) Description 08/09/2024 Orders Only [facility] MEDICINE [address] [place] [address] Giselle Das MD [address] [place] [address] Miscarriage (Primary Dx) Social History Tobacco Use [...] 12:44 PM EDT) HCG Quantitative 13 mIU/mL [facility] Comment:Weeks post LMP Appro ximate hCG(Last Menstrual Period) Range (mIU/ml)3 - 4 weeks 9 - 1304 - 5 weeks 75 - 2,6005 - 6 weeks 850 - 20,8006 - 7 weeks 4000 - 100,2007 - 12 weeks 11,500 - 289,04114 - 16 weeks 18,300 - 137,12526 - 29 weeks (2nd trimester) 1,400 - 53,64517 - 41 weeks (3rd trimester) 940 - [...] MD LAB BLOOD ORDERABLES Final Res ult [facility] [address] [place] [address] [phone] documented in this encounter Visit Diagnoses Diagnosis Miscarriage- Primary Unspecified spontaneous without mention of complication documented in this encounter Additional Health Concerns Assessment Noted Time PHQ-9 Depression Total Score: 0 12/24/19 3:16 PM EDT documented as of this encounter Care Teams Logistics System Engineer Relationship Specialty Start Date End Date Giselle Das MD [address] [place] [address] PCP - General Family Medicine 11/29/22 documented as of this encounter
--- OUTSIDE RECORDS SUMMARY | 2025-01-01 10:54 | XMS_ITS | Encounter Summary ---
Author Organization [employer] Address [address] [place] [address] Street 7t [place] [address] Care Team Providers Care Zone Supervisor Firearms Name Role Phone Giselle Das MD Primary Care Provider [phone] Encounter Details Date Type Department Care Team (Late st Contact Info) Description 01/17/[address] [facility] ADULT DENTAL [address] [place] [address] Rasheed Romeo, DMD [address] [place] [address] Social History Tobacco Use Types Packs/Day Years [...] documented as of this encounter Care Teams Zone Supervisor Firearms Relationship Specialty Start Date End Date Giselle Das MD [address] [place] [address] PCP - General Family Medicine 11/29/22 documented as of this encounter
--- OUTSIDE RECORDS SUMMARY | 2025-01-01 10:54 | XMS_ITS | Encounter Summary ---
Author Organization [employer] Address [address] [place] [address] 7t [place] [address] Care Team Providers Care Parking Analyst Name Role Phone Love Lewis Primary Care Provider Hedy Giselle Rolle MD Primary Care Provider Encounter Details Date [...] on filedocumented in this encounter Care Teams Parking Analyst Relationship Specialty Start Date End Date Love Lewis FNP PCP - General Family Medicine 08/20/21 11/28/22 Giselle Das MD [address] [place] [address] PCP - General Family Medicine 11/29/22 documented as of this encounter
--- OUTSIDE RECORDS SUMMARY | 2025-01-01 10:54 | XMS_ITS | Encounter Summary ---
Author Organization [employer] Address [address] [place] [address] 7 [place] [address] Care Team Providers Care Dice Table Person Name Role Phone Giselle Das MD Primary Care Provider [phone] Reason for Visit * Reason Onset Date Comments Appointment Request 03/27/2024 Encounter Details Date Type Department Care Team ([facility] st Contact Info) Description 03/27/2024 Telephone [facility] MEDICINE [address] [place] [address] Giselle Das MD [address] [place] [address] Appointment Request Social History Tobacco Use Types [...] 03/28/2024 8:33 AM EST Please schedule yearly LABORATORY ANIMAL CARETAKER visit with me, not due for pap. [...] that its been 2. Contact pt at [phone] documented in this encounter Plan of Treatment Not on file documented as of this encounter Visit Diagnoses Not on filedocumented in this encounter Additional Health Concerns Assessment Noted Time PHQ-9 Depression Total Score: 0 12/24/19 23 3:16 PM EDT documented as of this encounter Care Teams Dice Table Person Relationship Specialty Start Date End Date Giselle Das MD [address] [place] [address] PCP - General Family Medicine 11/29/22 documented as of this encounter
--- OUTSIDE RECORDS SUMMARY | 2025-01-01 10:54 | XMS_ITS | Encounter Summary ---
Author Organization [employer] Address [address] [place] [address] [address] [place] [address] Care Team Providers Care Security System Sales Consultant Name Role Phone Giselle Das MD Primary Care Provider [phone] Reason for Visit * Reason Onset Date Comments Nurse Triage 10/28/2024 Encounter Details Date Type Department Care Team ([facility] st Contact Info) Description 10/28/2024 Telephone [facility] MEDICINE [address] [place] [address] Giselle Das MD [address] [place] [address] Nurse Triage Social History Tobacco Use Types [...] mobility. Pt is advised to come to [facility] today to be seen by provider [...] caller accepted this outcome. Contact pt at [phone] documented in this encounter Plan of Treatment Not on file documented as of this encounter Visit Diagnoses Not on filedocumented in this encounter Additional Health Concerns Assessment Noted Time PHQ-9 Depression Total Score: 4 09/26/19 25 5:05 PM EDT documented as of this encounter Care Teams Security System Sales Consultant Relationship Specialty Start Date End Date Giselle Das MD [address] [place] [address] PCP - General Family Medicine 11/29/22 documented as of this encounter
--- OUTSIDE RECORDS SUMMARY | 2025-01-01 10:54 | XMS_ITS | Clinical Summary ---
Author Organization [employer] Address [address] [place] [address] 7[address] [place] [address] Care Team Providers Care Manager Database Name Role Phone Giselle Das MD Primary Care Provider [phone] Allergies Active Allergy Reactions Criticality Noted Date Comments Cathlamet Oil 08/17/2022 Prednisone Headache 11/15/2022 Cetirizine Hives 09/21/2022 Medications * This document contains information received from the source organization and may not represent a complete record from that organization. diphenhydrAMINE (BENADryl) 25 MG tabletIndication s:Seasonal allergic rhinitis, unspecified trigger Take 1 tablet (25 mg) by mouth every 8 (eight) hours if needed for itching. 90 tablet 1 3 Active Vit-Fe Fumarate-FA ( Plus) 27-1 MG tablet Take 1 tablet by mouth Once per day. 30 tablet 11 5 Active traZODone (Desyrel) 50 MG tabletIndication s:Sleep walking disorder,Anxiety Take 1 tablet (50 mg) by mouth at bedtime. 30 tablet 5 Active fexofenadine (Leslie) 180 MG tablet Take 1 tablet (180 mg) by mouth Once per day. 30 tablet 11 5 11/21/19 26 Active fluticasone (Flonase) 50 MCG/ACT nasal sprayIndications :Seasonal allergic rhinitis, unspecified trigger Administer 2 sprays into each nostril Once per day. Shake gently. Before first use, prime pump. After use, clean tip and replace cap. 16 g 2 5 11/21/19 26 Active albuterol 108 (90 Base) MCG/ACT inhalerIndicatio ns:URI, acute 2 puffs by Inhalation route every 4 hours ;administer with spacer prn shortness of breath or wheezing 18 g 1 5 Active Active Problems Problem Noted Date [...] Allergic rhinitis 05/15/2012 Overview (09/09/2022): Seen at [facility] 07/20/22 for nasal congestion. Treating with leslie [...] EDT): Completed Sudafed Not interested in an traffic maintenance officer currently. Continue Leslie Discontinue azelastine spray, not [...] next visit IUD contraception 01/18/2018 08/05/2024 Encounters * This document contains information received from the source organization and may not represent a complete record from that organization. Date Type Department Care Team Description 11/20/2024 10:40 AM EDT Office Visit [facility] [address] [place] [address] Jonelle Betancur MD Mild intermittent asthma without complication (Primary Dx); Sore throat; Cough, unspecified type; Seasonal allergic rhinitis, unspecified trigger; URI, acute 11/20/2024 Travel 11/20/[address] [address] Giselle Das MD Nurse Triage 10/30/2024 Results Follow-Up [address] [address] Rikki Van MD XR Knee 4+ Views Left 10/30/2024 Travel 10/29/2024 10:15 AM EDT Telemedicine [address] [address] Anabel Beltrán FNP Sleep walking disorder (Primary Dx); Anxiety 10/29/2024 Travel 10/28/2024 5:00 PM EDT Office Visit [facility] [address] [address] Rikki Van MD Acute pain of left knee (Primary Dx) 10/28/2024 Travel 10/28/[address] [address] Anabel Beltrán FNP Appointment Request 10/28/[address] [address] Giselle Das MD Appointment Request 10/28/[address] [address] Giselle Das MD Nurse Triage 10/26/2024 Travel 10/25/[address] [address] Giselle Das MD CHARTPREP 10/25/[address] [address] Giselle Das MD Nurse Triage from Last [...] Date Recorded Patient Health Questionnaire-9 Score 0 11/05/2024 Patient Health Questionnaire-9 Score 0 11/05/2024 Last PHQ-9: Questionnaire Data Not on file 0 11/05/2024 Housing Stability Answer Date Recorded What is [...] Date Recorded Patient Health Questionnaire-2 Score 0 11/05/2024 Internet Access Answer Date Recorded Internet Access [...] Sign Reading Time Taken Comments Blood Pressure 130/70 11/20/2024 10:38 AM EDT Pulse 76 11/20/2024 10:38 AM EDT Temperature 36.9 C (98.4 F) 11/20/2024 10:38 AM EDT Respiratory Rate 25 11/20/2024 10:38 AM EDT Oxygen Saturation 99% 11/20/2024 10:38 AM EDT Inhaled Oxygen Concentration - - Weight 107 kg (235 lb) 11/20/2024 10:38 AM EDT Height 148.6 cm (4' 10.5 ) 11/20/2024 10:38 AM E DT Body Mass Index 48.28 11/20/2024 10:38 AM EDT Plan of Treatment Health Maintenance Due [...] 09/24/2025 09/24/2024 Alcohol/Substance Use Screening 09/25/2025 09/25/2024 SDOH Screening 09/25/2025 09/25/2024 Depression Screening 11/05/2025 11/05/2024, 11/06/19 25 Tobacco Screening 11/20/2025 11/20/2024 Lipid Panel 09/12/2029 09/12/2024, 09/20/2022 DTaP/Tdap/Td Vaccines [...] Procedure Name Priority Date/Time Associated Diagnosis Comments POCT INFLUENZA A (ID NOW RAPID MOLECULAR) Routine 11/20/2024 10:54 AM EDT Cough, unspecified type POCT COVID-19 AG BALL ID NOW Routine 11/20/2024 10:54 AM EDT Cough, unspecified type POCT INFLUENZA B (ID NOW RAPID MOLECULAR) Routine 11/20/2024 10:53 AM EDT Cough, unspecified type POC BALL ID NOW STREP A Routine 11/20/2024 10:52 AM EDT Sore throat XR KNEE 4+ VIEWS LEFT Routine 10/29/2024 10:48 AM EDT Acute pain of left knee LIPID PANEL, STANDARD Routine 09/12/2024 8:37 AM EDT PCOS (polycystic ovarian syndrome) Full PROPHYLAXIS - ADULT Routine 10/27/2022 2:00 PM EDT Dental calculus BITEWINGS - 4 RADIOGRAPHIC IMAGES Routine 10/27/2022 2:00 PM EDT Dental calculus PERIODIC ORAL EVALUATION - ESTABLISHED PATIENT Routine 10/27/2022 2:00 PM EDT PAP SMEAR Routine 09/21/2022 12:00 AM EDT HEPATITIS C VIRAL RNA, QUANTITATIVE, REAL-TIME PCR Routine 09/20/2022 8:24 AM EDT Health care maintenance HIV ANTIBODY/ANTIGEN ([facility]) Routine 09/20/2022 8:24 AM EDT INTRAORAL - COMPLETE SERIES OF RADIOGRAPHIC IMAGES Routine 06/21/2021 12:00 AM EDT from Last 3 Months or Most Recently Relevant to Health Maintenance Results * POCT Rapid Influenza A BALL ID NOW (11/20/2024 10:54 AM EDT) Influenza A Negative Negative, Indeterminate [facility] QC Media Lot # [id number] [facility] Lot# Expiration Date , [facility] Swab 11/20/2024 10:5 4 AM EDT Jonelle Betancur MD POINT OF CARE TEST ENTER/EDIT ORDERABLES Final Result Performing Organization Address City/State/[facility] Co de Phone Number [facility] [address] [place] [phone] * POCT Rapid Covid-19 BALL ID NOW (11/20/2024 10:54 AM EDT) Pathologist [facility] Coronavirus Antigen PCR Negative Negative, Indeterminate, None Detected, Invalid, Specimen unsatisfactory for evaluation, Weakly Positive, 2+ QC Media Lot # [id number] Lot# Expiration Date Swab 11/20/2024 10:5 4 AM EDT Jonelle Betancur MD POINT OF CARE TEST ENTER/EDIT ORDERABLES Final Result * POCT Rapid Influenza B BALL ID NOW (11/20/2024 10:53 AM EDT) Influenza B Negative Negative, Indeterminate [facility] QC Media Lot # [id number] [facility] Lot# Expiration Date , [facility] Swab 11/20/2024 10:5 3 AM EDT Jonelle Betancur MD POINT OF CARE TEST ENTER/EDIT ORDERABLES Final Result [facility] [address] [place] [phone] * POCT Rapid Strep A BALL ID NOW (11/20/2024 10:52 AM EDT) Rapid Strep A Screen Negative Negative, None Detected QC Media Lot # [id number] Lot# Expiration Date Swab 11/20/2024 10:5 2 AM EDT Jonelle Betancur MD POINT OF CARE TEST ENTER/EDIT ORDERABLES Final Result * XR Knee 4+ Views Left (10/29/2024 10:48 AM EDT) Anatomical Region Laterality Modality Lower Extremities, Knee Left Radiogra phic Imaging 10/29/2024 10:4 8 AM EDT Narrative 10/29/2024 11:02 AM EDT [address] [address] XRay Report Signed Patient: Deysi Doyle MR# : [id number] : 1995 Acct:[id number] Age/Sex: 29 / F ADM Date: 10/29/24 Loc: [facility] Attending Dr: Rikki Van MD Ordering Physician: Rikki Van MD Date of Service: 10/29/24 Procedure(s): XR knee LT 4V Accession Number(s): [id number] cc: Giselle Das; Rikki Van MD Reason [...] OV> 10/29/24 1059 DD/ 1048 TD/TT: 10/29/24 105 Information Services Manager: Procedure Note Donotuseinterpreter, Image - 10/29/[address] [address] XRay Report Signed Patient: Deysi Doyle MMR# : [id number] : 1995Acct:[id number] Age/Sex: 29 FADM Date: 10/29/24 Loc: [facility] Attending Dr: Rikki Van MD Ordering Physician: Rikki Van MD Date of Service: 10/29/24 Procedure(s): XR knee LT 4V Accession Number(s): [id number] cc: Giselle Das; Rikki Van MD Reason [...] OV> 10/29/24 1059 DD/ 1048 TD/TT: 10/29/24 105 Information Services Manager: Rikki Van MD IMG XR PROCEDURES Edited Result - Final * (ABNORMAL) Lipid Panel, Standard (09/12/2024 8:37 AM EDT) Triglycerides 110 <150 mg/dL [facility] Comment:Desirable Triglyceri de: less than 150 mg/dLBorderline High Triglyceride 150-199 mg/dLHigh Triglyceride: 200-499 mg/dLVery High Triglyceride: greater than or equal to 5OO mg/dL Cholesterol 192 <200 mg/dL [facility] Comment:Desirable Cholestero l: less than 200 mg/dLBorderline High Cholesterol: 200-239 mg/dLHigh Cholesterol: greater than 239 mg/dL LDL Cholesterol Calculated 122(H) <100 mg/dL [facility] Comment:Desirable LDL: less than 100 mg/dLNear Optimal/Above Optimal LDL: 110- 129 mg/dLBorderline High LDL: 130-159 mg/dLHigh LDL: 160-189 mg/dLVery High LDL: greater than or equal to 190 mg/dL HDL Cholesterol 48 >40 mg/dL [facility] Comment:Desirable HDL: great er than 40 mg/dL Note: This HDL assay may give artificially low results in patients with liver disease. Blood Venous blood specimen / Unknown 09/12/2024 8:37 AM EDT 09/12/2024 8:37 AM EDT us Diomedes Blackburn [facility] LAB BLOOD ORDERABLES Soco martinez Result [facility] [address] [place] [phone] * Pap Smear (09/21/2022 12:00 AM EDT) 09/21/2022 09/22/2022 8:0 0 AM EDT Narrative [facility] - 10/13/2022 1:24 PM EDT ----- ------- Name: Deysi Doyle Age/Sex: 27/F : 1995 Unit#: [id number] Attend Dr: DIOMEDES BLACKBURN CNM Re09/21/22 Status: DEP [facility] Disch: ----- ------- SPEC : [id number] RECD: 09/22/22 STATUS: GREY CHEEMA NUM: [id number] RENARD: 09/21/22-[address]: DIOMEDES BLACKBURN ENTERED: 09/22/221140 SP TYPE: Pap Smr OTHR DR: ORDERED: Pap Smear Interpretation Satisfactory for evaluation. No endocervical cells seen. Coccobacilli consistent with shift in vaginal jaswant. Negative for intraepithelial lesion or malignancy. Clinical Information LMP: Unknown date Previous PAP test: Unknown date/findings Material Received ThinPrep-Vaginal/Cervical ----- ------- Signed (signature on file) NALDO Whitfield ([facility]) 10/13/22 1324 ----- ------- END OF REPORT Dimoedes Blackburn CN LAB CYTOLOGY ORDERABLES F inal Result Performing Organization Address [facility]/ZIP Co de Phone Number [facility] [address] [place] [phone] [phone] * HIV Ab/Ag (DALLIN NOBLE) (09/20/2022 8:24 AM EDT) Pathologist [facility] HIV AB/AG Nonreactive Nonreactive [facility] Comment:HIV-1 p24 Ag and/or HIV-1/HIV-2 Ab not detected.A test result that is nonreactive does not exclude thepossibility of exposure to or infection with HIV-1 and/orHIV-2. Nonreactive results in this assay for individualswith prior exposure to HIV-1 and/or HIV-2 may be due toantigen and antibody levels that are below the limit ofdetection of this assay.[employer] Dietary Supervisor HIV Ag/Ab Combo assay result andsupplemental assay results should be interpreted inconjunction with the patient's clinical presentation,history and other laboratory results. If the results areinconsistent with clinical evidence, additional testing issuggested to confirm the result. 09/20/2022 8:24 AM EDT 09/20/2022 8:24 AM EDT Love Lewis FACE HARDENER LAB BLOOD ORDERABLES Final Result Performing Organization Address [facility] Co de Phone Number [facility] [address] [place] [phone] * Hepatitis C Viral RNA, Quantitative, Real-Time PC (09/20/2022 8:24 AM EDT) Pathologist [facility] Hepatitis C Viral Load <15 NOT DETECTED NOT DETECTED IU/mL [facility] HCV Log PCR <1.18 NOT DETECTED NOT DETECTED Log IU/mL [facility] Comment:This test was perfor med using Real-Time Polymerase ChainReaction.Reportable Range: 15 IU/mL to 100,000,000 IU/mL(1.18 Log IU/mL to 8.00 Log IU/mL).The analytical performance characteristics of thisassay have been determined by [employer].The modifications have not been cleared or approved bythe FDA. This assay has been validated pursuant to theCLIA regulations and is used for clinical purposes.For more information on this test, go to:http://education.[employer]/faq/ZAT74e5(This link is being provided for informational/educational purposes only.)THIS TEST WAS PERFORMED AT:[facility] [place] [id number] HERNANDEZ MD 09/20/2022 8:24 AM EDT 09/20/2022 8:24 AM EDT Love Lewis FACE HARDENER LAB BLOOD ORDERABLES Final Result Performing Organization Address City/State/[facility] Co de Phone Number [facility] [address] [place] [phone] from Last 3 Months or Most Recently Relevant to Health Maintenance Insurance [employer] [place] [address] [place] [address] [facility] Care Teams Manager Database Relationship Specialty Start Date End Date Giselle Das MD [address] [place] [phone] PCP - General Family Medicine 11/29/22
--- OUTSIDE RECORDS SUMMARY | 2025-01-01 10:54 | XMS_ITS | Encounter Summary ---
Author Organization [employer] Address [address] [place] [address] Care Team Providers Care Line Patrolman Name Role Phone Giselle Das MD Primary Care Provider [phone] Encounter Details Date Type Department Care Team (Late st Contact Info) Description 10/30/2024 Results Follow-Up [facility] [address] [place] [address] Rikki Van MD [address] [place] [address] XR Knee 4+ Views Left Social History Tobacco Use Types Packs/Day Years [...] AM EDT documented as of this encounter Functional Status * Over the past 2 weeks, how often have you been bothered by any of the following problems? Question Answer Date of Assessment Author Patient Health Questionnaire-2 Score 0 11/05/2024 2:30 PM EDT Nehemiah Live LICSW * Little interest or pleasure in doing things Answer Date of Assessment Author Not at all 11/05/2024 2:30 PM EDT Yuki Live LICSW * Feeling down, depressed, or hopeless Answer Date of Assessment Author Not at all 11/05/2024 2:30 PM EDT Yuki Live LICSW * Trouble falling or staying asleep, or sleeping too much Answer Date of Assessment Author Not at all 11/05/2024 2:30 PM EDT Yuki Live LICSW * Feeling tired or having little energy Answer Date of Assessment Author Not at all 11/05/2024 2:30 PM EDT Yuki Live LICSW * Poor appetite or overeating Answer Date of Assessment Author Not at all 11/05/2024 2:30 PM EDT Yuki Live LICSW * Feeling bad about yourself - or that you are a failure or have let yourself or your family down Answer Date of Assessment Author Not at all 11/05/2024 2:30 PM EDT Yuki Live LICSW * Trouble concentrating on things, such as reading the newspaper or watching television Answer Date of Assessment Author Not at all 11/05/2024 2:30 PM EDT Yuki Live LICSW * Moving or speaking so slowly that other people could have noticed? Or the opposite - being so fidgety or restless that you have been moving around a lot more than usual. Answer Date of Assessment Author Not at all 11/05/2024 2:30 PM EDT Yuki Live LICSW * Thoughts that you would be better off or hurting yourself in some way Answer Date of Assessment Author Not at all 11/05/2024 2:30 PM EDT [facility]uki Live LICSW * Patient Health Questionnaire-9 Score Answer Date of Assessment Author 0 11/05/2024 2:30 PM EDT Yuki Live LICSW * Over the last 2 weeks, how often have you been bothered by any of the following problems? Question Answer Date of Assessment Author Feeling nervous, anxious, or on edge 0 11/05/2024 2:30 PM EDT Beverly Live LICSW Not being able to stop or control worrying 0 11/05/2024 2:30 PM EDT Beverly Live LICSW Worrying too much about different things 0 11/05/2024 2:30 PM EDT Beverly Live LICSW Trouble relaxing 0 11/05/2024 2:30 PM EDT Yuki Matute LICSW Being so restless that it is hard to sit still 0 11/05/2024 2:30 PM EDT Beverly Live LICSW Becoming easily annoyed or irritable 0 11/05/2024 2:30 PM EDT Beverly Live ADMINISTRATIVE TECH Feeling afraid as if something awful might happen 0 11/05/2024 2:30 PM EDT Yuki Live LICSW MANDY-7 Total Score 0 11/05/2024 2:30 PM EDT Yuki Live LICSW documented as of this encounter Plan of Treatment Not on file documented as of this encounter Visit Diagnoses Not on filedocumented in this encounter Additional Health Concerns Assessment Noted Time PHQ-9 Depression Total Score: 4 09/26/19 25 5:05 PM EDT documented as of this encounter Care Teams Line Patrolman Relationship Specialty Start Date End Date Giselle Das MD [address] [place] [address] PCP - General Family Medicine 11/29/22 documented as of this encounter
== END 2025-01-01 09:36 | disposition home or self-care (01) ==
LOC: HO.LAB 09:35
PROVIDERS: PCP General Practice; Referring Provider General Practice; Visit Provider Advanced Practice Midwife
DX: J45.20 Mild intermittent asthma, uncomplicated (principal); Z32.00 Encounter for pregnancy test, result unknown
CPT/HCPCS: 36415; 82306; 84702

== ENCOUNTER 2025-01-15 12:24 | Outpatient (REF) | payer OTHER, SELFPAY ==
--- NOTE | ~2025-01-15 | US_ITS ---
EXAMINATION: US OBSTETRICAL ULTRASOUND CLINICAL INFORMATION: History of spontaneous , positive beta hCG COMPARISON: None available. LMP: 11/16/2024. Gestational age by maternal dates is 8 weeks 4 days. Estimated date of delivery by maternal dates is 08/23/2025. TECHNIQUE: Transabdominal ultrasound was performed through the uterus adnexa with color Doppler and B-mode. FINDINGS: There is a single intrauterine gestational sac with visible yolk sac, embryo/fetus, and cardiac activity. There is no significant subchorionic hemorrhage or hematoma. HR: 169 beats per minute. CRL (crown rump length): 16 mm Estimated gestational age by size: 8 weeks 0 days HOLLI (estimated date of delivery): 08/27/2025 MATERNAL ADNEXA: The right maternal ovary measures 3.8 x 1.4 x 2.3 cm. 1.9 cm echogenic cyst is most consistent with a corpus luteum. The left maternal ovary measures 2.6 x 1.6 x 1.9 cm. There is no significant maternal adnexal mass. No maternal pelvic ascites. US/US OB <= 14 weeks fetus IMPRESSION: Single living intrauterine gestation. Size and dates are concordant 8w 4d, estimated date of delivery 08/23/2025. Electronically signed by: Iraj Salazar MD 01/15/2025 01:11 PM [facility]
--- OUTSIDE RECORDS SUMMARY | 2025-01-15 15:28 | XMS_ITS | Clinical Summary ---
Author Organization [employer] Address [address] [place] [address] 7t [place] [address] Care Team Providers Care Glove Parts Cutter Name Role Phone Giselle Das MD Primary Care Provider [phone] Allergies Active Allergy Reactions Criticality Noted Date Comments [employer] 08/17/2022 Prednisone Headache 11/15/2022 Cetirizine Hives [...] Allergic rhinitis 05/15/2012 Overview (09/09/2022): Seen at [facility] 07/20/22 for nasal congestion. Treating with leslie [...] EDT): Completed Sudafed Not interested in an manager track currently. Continue Leslie Discontinue azelastine spray, not [...] organization. Date Type Department Care Team Description 01/15/2025 Orders Only [facility] MED[facility]INE [address] [place] [address] Diomedes Blackburn, JADYN 8 weeks gestation of (Primary Dx) 01/01/2025 Orders Only [facility] [place] [address] Diomedes Blackburn CNM Less than 8 weeks gestation of (Primary Dx) 01/01/2025 Results Follow-Up [facility] DALLIN Booker [phone] Diomedes Blackburn, JADYN hCG, Total, Quantitative 11/20/2024 10:40 AM EDT Office Visit [facility] [place] [address] Jonelle Betancur MD Mild intermittent asthma without complication (Primary Dx); Sore throat; Cough, unspecified type; Seasonal allergic rhinitis, unspecified trigger; URI, acute 11/20/2024 Travel 11/20/2024 Telephone [facility] [place] [address] Giselle Das MD Nurse Triage 10/30/2024 Results Follow-Up [facility] [place] [address] Rikki Van MD XR Knee 4+ Views Left 10/30/2024 Travel 10/29/2024 10:15 AM EDT Telemedicine [facility] [place] [address] Anabel Beltrán FNP Sleep walking disorder (Primary Dx); Anxiety 10/29/2024 Travel 10/28/2024 5:00 PM EDT Office Visit [facility] [place] [address] Rikki Van MD Acute pain of left knee (Primary Dx) 10/28/2024 Travel 10/28/2024 Telephone [facility] [place] [address] Anabel Beltrán FNP Appointment Request 10/28/[address] [place] [address] Giselle Das MD Appointment Request 10/28/[address] [address] Giselle Das MD Nurse Triage 10/26/2024 Travel 10/25/[address] [phone] Giselle Das MD CHARTPREP 10/25/[address] [phone] Giselle Das MD Nurse Triage from Last [...] 11/20/2024 10:38 AM EDT Plan of Treatment Upcoming Encounters Date Type Department Care Team (Late st Contact Info) Description 04/16/2025 3:45 PM EST Office Visit [facility] MEDICINE [address] [place], [place] [phone] Giselle Das MD [address] [place], [place] [phone] Health Maintenance Due Date Last Done Comments [...] Procedure Name Priority Date/Time Associated Diagnosis Comments AMB REFERRAL TO PODIATRY Routine 01/08/2025 Bunion of great toe of right foot HCG, TOTAL, QN Routine 01/01/2025 9:47 AM EST Encounter for test, result unknown VITAMIN D,25-OH,TOTAL,IA Routine 01/01/2025 9:47 AM EST Mild intermittent asthma without complication POCT INFLUENZA A (ID NOW RAPID MOLECULAR) [...] Recently Relevant to Health Maintenance Results * Referral to Podiatry (01/08/2025) Giselle Das MD OUTPATIENT REFERRAL ORDERABLES Final Result * (ABNORMAL) Vitamin D, 25-Hydroxy, Total, Immunoassay (01/01/2025 9:47 AM EST) Vitamin D 25-OH Total 14.9(L) >30 ng/mL [facility] Comment: Health Based Reference Values*< 20 ng/mL Ufmigywhb41-60 ng/mL Insufficient> 30 ng/mL Sufficient*Gem WORTHY. N Engl J Med. 2007;357:266-280There is no well-established upper level of normal vitamin Dlevels. Some laboratories use 50 ng/mL as an upper limit ofnormal. However, toxicity is patient-dependent and may occurat any level. Careful correlation with the patient'spresentation is necessary and, if there is concern forvitamin D toxicity, treatment should be consideredirrespective of the serum level.Care must be taken in interpreting Vitamin D results fromdifferent laboratories and methodologies. Published datademonstrated that results from patients undergoinghemodialysis may show a negative bias when tested withvarious automated 25-OH vitamin D assays when compared toLC-MS/MS.When testing samples from patients whose predominant form ofVitamin D is Vitamin D2, such as patients receiving VitaminD2 supplementation, results that are subtherapeutic shouldbe confirmed with another method such as LC-MS/MS. Blood Venous blood specimen / Unknown 01/01/2025 9:47 AM EST 01/01/2025 9:47 AM EST us Giselle Das MD LAB BLOOD ORDERABLES Final Res ult [facility] [address] [place] [address] [phone] * hCG, Total, Quantitative (01/01/2025 9:47 AM EST) HCG Quantitative 12,893 mIU/mL [facility] Comment:Weeks post LMP Appro ximate hCG(Last Menstrual Period) Range (mIU/ml)3 - 4 weeks 9 - 1304 - 5 weeks 75 - 2,6005 - 6 weeks 850 - 20,8006 - 7 weeks 4000 - 100,2007 - 12 weeks 11,500 - 289,22415 - 16 weeks 18,300 - 137,44937 - 29 weeks (2nd trimester) 1,400 - 53,02485 - 41 weeks (3rd trimester) 940 - 60,000The Ball B- hCG assay is used for the early detection ofpregnancy; it cannot be used to diagnose any conditionunrelated to . If a B-hCG level is not supportedby the clinical evidence, results should be confirmed by analternative method (qualitative urine hCG, for example). Blood Venous blood specimen / Unknown 01/01/2025 9:47 AM EST 01/01/2025 9:47 AM EST Diomedes Blackburn [facility] LAB BLOOD ORDERABLES Soco l Result Performing Organization Address City/[facility]/ZIP Co de Phone Number [facility] [address] [place] [phone] * POCT Rapid Influenza A BALL ID NOW (11/20/2024 10:54 AM EDT) Influenza A Negative Negative, Indeterminate [facility] QC Media Lot # [id number] [facility] Lot# Expiration Date [facility] Swab 11/20/2024 10:5 4 AM EDT Jonelle Betancur MD POINT OF CARE TEST ENTER/EDIT ORDERABLES Final Result Performing Organization Address [facility] Co de Phone Number [facility] [address] [place] [phone] * POCT Rapid Covid-19 BALL ID NOW (11/20/2024 10:54 AM EDT) Coronavirus Antigen PCR Negative Negative, Indeterminate, None Detected, Invalid, Specimen unsatisfactory for evaluation, Weakly Positive, 2+ QC Media Lot # [id number] Lot# Expiration Date Swab 11/20/2024 10:5 4 AM EDT Jonelle Betancur MD POINT OF CARE TEST ENTER/EDIT ORDERABLES Final Result * POCT Rapid Influenza B BALL ID NOW (11/20/2024 10:53 AM EDT) Influenza B Negative Negative, Indeterminate [facility] QC Media Lot # [id number] [facility] Lot# Expiration Date , [facility] Swab 11/20/2024 10:5 3 AM EDT Jonelle Betancur MD POINT OF CARE TEST ENTER/EDIT ORDERABLES Final Result [facility] [address] [place] [phone] * POCT Rapid Strep A BALL ID NOW (11/20/2024 10:52 AM EDT) Rapid Strep A Screen Negative Negative, None Detected QC Media Lot # [id number] Lot# Expiration Date Swab 11/20/2024 10:5 2 AM EDT us Jonelle Betancur MD POINT OF CARE TEST ENTER/EDIT ORDERABLES Final Result * XR Knee 4+ Views Left (10/29/2024 10:48 AM EDT) Anatomical Region Laterality Modality Lower Extremities, Knee Left Radiogra phic Imaging 10/29/2024 10:4 8 AM EDT Narrative 10/29/2024 11:02 AM EDT [address] [address] XRay Report Signed Patient: Deysi Doyle MR# : [id number] : 1995 Acct:[id number] Age/Sex: 29 / F ADM Date: 10/29/24 Loc: REJI Attending Dr: Rikki Van MD Ordering Physician: Rikki Van MD Date of Service: 10/29/24 Procedure(s): XR knee LT 4V Accession Number(s): [id number] cc: Giselle Das; Rikki Van MD Reason [...] 10/29/24 1059 DD/ 1048 TD/TT: 10/29/24 1055 Dry Drug Worker: Procedure Note Donotuseinterpreter, Image - 10/29/2024 [place] [address] XRay Report Signed Patient: Deysi Doyle [facility]# : [id number] : 1995Acct:[id number] Age/Sex: 29 / FADM Date: 10/29/24 Loc: REJI Attending Dr: Rikki Van MD Ordering Physician: iRkki Van MD Date of Service: 10/29/24 Procedure(s): XR knee LT 4V Accession Number(s): [id number] cc: Giselle Das; Rikki Van MD Reason [...] 10/29/24 1059 DD/ 1048 TD/TT: 10/29/24 1055 Dry Drug Worker: us Rikki Van MD IMG XR PROCEDURES Edited Result - Final * (ABNORMAL) Lipid Panel, Standard (09/12/2024 8:37 AM EDT) Triglycerides 110 <150 mg/dL [facility] Comment:Desirable Triglyceri de: less than 150 mg/dLBorderline High Triglyceride 150-199 mg/dLHigh Triglyceride: 200-499 mg/dLVery High Triglyceride: greater than or equal to 5OO mg/dL Cholesterol 192 <200 mg/dL [facility] Comment:Desirable Cholestero l: less than 200 mg/dLBorderline High Cholesterol: 200-239 mg/dLHigh Cholesterol: greater than 239 mg/dL LDL Cholesterol Calculated 122(H) <100 mg/dL [facility] Comment:Desirable LDL: less than 100 mg/dLNear Optimal/Above Optimal LDL: 110- 129 mg/dLBorderline High LDL: 130-159 mg/dLHigh LDL: 160-189 mg/dLVery High LDL: greater than or equal to 190 mg/dL HDL Cholesterol 48 >40 mg/dL [facility] Comment:Desirable HDL: great er than 40 mg/dL Note: This HDL assay may give artificially low results in patients with liver disease. Blood Venous blood specimen / Unknown 09/12/2024 8:37 AM EDT 09/12/2024 8:37 AM EDT us Diomedes Blackburn [facility] LAB BLOOD ORDERABLES Soco l Result [facility] [address] [place] [address] [phone] * Pap Smear (09/21/2022 12:00 AM EDT) 09/21/2022 09/22/2022 8:0 0 AM EDT Narrative [facility] - 10/13/2022 1:24 PM EDT ----- ------- Name: Deysi Doyle Age/Sex: : 1995 Unit#: [id number] Attend Dr: DIOMEDES BLACKBURN [facility] Re09/21/22 Status: DEP REF Location: [facility] Disch: ----- ------- SPEC : [id number] RECD: 09/22/22 STATUS: GREY CHEEMA NUM: [id number] RENARD: 09/21/22-[address]: DIOMEDES BLACKBURN [facility] ENTERED: 09/22/22-1140 SP TYPE: Pap Smr OTHR DR: ORDERED: Pap Smear Interpretation Satisfactory for evaluation. No endocervical cells seen. Coccobacilli consistent with shift in vaginal jaswant. Negative for intraepithelial lesion or malignancy. Clinical Information LMP: Unknown date Previous PAP test: Unknown date/findings Material Received ThinPrep-Vaginal/Cervical ----- ------- Signed (signature on file) NALDO Whitfield ([facility]) 10/13/22 1324 ----- ------- END OF REPORT Diomedes Blackburn [facility] LAB CYTOLOGY ORDERABLES F inal Result Performing Organization Address [facility] Co de Phone Number [facility] [address] [place] [phone] * HIV Ab/Ag ([facility]) (09/20/2022 8:24 AM EDT) [facility] HIV AB/AG Nonreactive Nonreactive [facility] Comment:HIV-1 p24 Ag and/or HIV-1/HIV-2 Ab not detected.A test result that is nonreactive does not exclude thepossibility of exposure to or infection with HIV-1 and/orHIV-2. Nonreactive results in this assay for individualswith prior exposure to HIV-1 and/or HIV-2 may be due toantigen and antibody levels that are below the limit ofdetection of this assay.The [employer] Geriatric Assistant HIV Ag/Ab Combo assay result andsupplemental assay results should be interpreted inconjunction with the patient's clinical presentation,history and other laboratory results. If the results areinconsistent with clinical evidence, additional testing issuggested to confirm the result. 09/20/2022 8:24 AM EDT 09/20/2022 8:24 AM EDT Love Lewis [facility] LAB BLOOD ORDERABLES Final Result Performing Organization Address [facility] Co de Phone Number [facility] [address] [place] [address] [phone] * Hepatitis C Viral RNA, Quantitative, Real-Time PC (09/20/2022 8:24 AM EDT) Hepatitis C Viral Load <15 NOT DETECTED NOT DETECTED IU/mL [facility] HCV Log PCR <1.18 NOT DETECTED NOT DETECTED Log IU/mL [facility] Comment:This test was perfor med using Real-Time Polymerase ChainReaction.Reportable Range: 15 IU/mL to 100,000,000 IU/mL(1.18 Log IU/mL to 8.00 Log IU/mL).The analytical performance characteristics of thisassay have been determined by [employer].The modifications have not been cleared or approved bythe FDA. This assay has been validated pursuant to theCLIA regulations and is used for clinical purposes.For more information on this test, go to:http://education.[employer]ion[employer]/faq/APK90v7(This link is being provided for informational/educational purposes only.)THIS TEST WAS PERFORMED AT:[employer] [place] [phone] HERNANDEZ MD 09/20/2022 8:24 AM EDT 09/20/2022 8:24 AM EDT Love Lewis TAKE UP OPERATOR LAB BLOOD ORDERABLES Final Result [facility] [address] [place] [address] [phone] from Last 3 Months or Most Recently Relevant to Health Maintenance Insurance [employer] [facility] Care Teams Glove Parts Cutter Relationship Specialty Start Date End Date Giselle Das MD [address] [place] [phone] PCP - General Family Medicine 11/29/22
--- OUTSIDE RECORDS SUMMARY | 2025-01-15 15:28 | XMS_ITS | Encounter Summary ---
Author Organization [employer] Address [address] [place] [address] 7 [place] [address] Care Team Providers Care Breadman Name Role Phone Love Lewis Primary Care Provider Giselle Marrero MD Primary Care Provider [phone] Encounter Details Date Type Department Care Team (Latest Contact Info) Description 06/21/2021 Abstract [facility] CONVERSIONS Dental, Provider, DDS Social History Tobacco [...] Description 04/16/2025 3:45 PM EST Office Visit [facility] MEDICINE [address] [place] [address] Giselle Das MD [address] [place] [address] documented as of this encounter Visit Diagnoses Not on filedocumented in this encounter Care Teams Breadman Relationship Specialty Start Date End Date Love Lewis FNP PCP - General Family Medicine 08/20/21 11/28/22 Giselle Das MD [address] [place] [address] PCP - General Family Medicine 11/29/22 documented as of this encounter
--- OUTSIDE RECORDS SUMMARY | 2025-01-15 15:28 | XMS_ITS | Encounter Summary ---
Author Organization [employer] Address [address] [place] [address] 7 [place] [address] Care Team Providers Care Asphalt Blender Name Role Phone Giselle Das MD Primary Care Provider [phone] Reason for Visit * Reason Onset Date Comments Appointment Request 10/28/2024 Encounter Details Date Type Department Care Team ([facility] st Contact Info) Description 10/28/2024 Telephone [facility] MEDICINE [address] [place] [address] Giselle Das MD [address] [place] [address] Appointment Request Social History Tobacco Use Types [...] made a telephone visit Contact pt at [phone] documented in this encounter Plan of Treatment Upcoming Encounters Date Type Department Care Team (Late st Contact Info) Description 04/16/2025 3:45 PM EST Office Visit [facility] MEDICINE [address] [place] [phone] Giselle Das MD [address] [place] [address] documented as of this encounter Visit Diagnoses Not on filedocumented in this encounter Additional Health Concerns Assessment Noted Time PHQ-9 Depression Total Score: 4 09/26/19 25 5:05 PM EDT documented as of this encounter Care Teams Asphalt Blender Relationship Specialty Start Date End Date Giselle Das MD [address] [place] [address] PCP - General Family Medicine 11/29/22 documented as of this encounter
--- OUTSIDE RECORDS SUMMARY | 2025-01-15 15:28 | XMS_ITS | Encounter Summary ---
Author Organization [employer] Address [address] [place] [address] 7t [place] [address] Care Team Providers Care Intelligence Consultant Name Role Phone Giselle Das MD Primary Care Provider Reason for Visit * Reason Comments Med Change Request Encounter Details Date Type Department Care Team ([facility] Contact Info) Description 05/19/2023 Refill [facility] MEDICINE [address] [place] [address] Diane Rodgers MD [address] [place] [address] Upper abdominal pain Social History Tobacco Use [...] Description 04/16/2025 3:45 PM EST Office Visit [facility] MEDICINE [address] [place] [address] Giselle Das MD [address] [place] [phone] documented as of this encounter Visit Diagnoses Diagnosis Upper abdominal pain documented in this encounter Additional Health Concerns Assessment Noted Time PHQ-9 Depression Total Score: 0 12/24/19 3:16 PM EDT documented as of this encounter Care Teams Intelligence Consultant Relationship Specialty Start Date End Date Giselle Das MD [address] [place] [address] PCP - General Family Medicine 11/29/22 documented as of this encounter
--- OUTSIDE RECORDS SUMMARY | 2025-01-15 15:28 | XMS_ITS | Encounter Summary ---
Author Organization [employer] Address [address] [place] [address] 7 [place] [address] Care Team Providers Care Rn Dermatology Name Role Phone Giselle Das MD Primary Care Provider [phone] Reason for Visit * Reason Onset Date Comments Appointment Request 03/27/2024 Encounter Details Date Type Department Care Team ([facility] st Contact Info) Description 03/27/[address] [facility] MEDICINE [address] [place] [address] Giselle Dsa MD [address] [place] [address] Appointment Request Social History Tobacco Use Types [...] 03/28/2024 8:33 AM EST Please schedule yearly DIRECTOR OF MEDICARE visit with me, not due for pap. [...] that its been 2. Contact pt at [phone] documented in this encounter Plan of Treatment Upcoming Encounters Date Type Department Care Team (Late st Contact Info) Description 04/16/2025 3:45 PM EST Office Visit [facility] MEDICINE [address] [place] [address] Giselle Das MD [address] [place] [address] documented as of this encounter Visit Diagnoses Not on filedocumented in this encounter Additional Health Concerns Assessment Noted Time PHQ-9 Depression Total Score: 0 12/24/19 23 3:16 PM EDT documented as of this encounter Care Teams Rn Dermatology Relationship Specialty Start Date End Date Giselle Das MD [address] [place] [address] PCP - General Family Medicine 11/29/22 documented as of this encounter
--- OUTSIDE RECORDS SUMMARY | 2025-01-15 15:28 | XMS_ITS | Encounter Summary ---
Author Organization [employer] Address [address] 7[address] [place] [address] Care Team Providers Care Four Horse Hitch Driver Name Role Phone Giselle Das MD Primary Care Provider [phone] Encounter Details Date Type Department Care Team (Late st Contact Info) Description 08/09/2024 Orders Only [facility] MEDICINE [address] [place] [address] Giselle Das MD [address] [place] [address] Miscarriage (Primary Dx) Social History Tobacco Use [...] Description 04/16/2025 3:45 PM EST Office Visit [facility] MEDICINE [address] [place], [place] [phone] Giselle Das MD [address] [place], [place] [phone] documented as of this encounter Procedures Procedure Name Priority Date/Time Associated Diagnosis Comments HCG, TOTAL, QN Routine 08/12/2024 12:44 PM EDT Miscarriage documented in this encounter Results * hCG, Total, Quantitative (08/12/2024 12:44 PM EDT) HCG Quantitative 13 mIU/mL [facility] Comment:Weeks post LMP Appro ximate hCG(Last Menstrual Period) Range (mIU/ml)3 - 4 weeks 9 - 1304 - 5 weeks 75 - 2,6005 - 6 weeks 850 - 20,8006 - 7 weeks 4000 - 100,2007 - 12 weeks 11,500 - 289,34068 - 16 weeks 18,300 - 137,24155 - 29 weeks (2nd trimester) 1,400 - 53,29989 - 41 weeks (3rd trimester) 940 - [...] MD LAB BLOOD ORDERABLES Final Res ult [facility] [address] [place] [address] [phone] documented in this encounter Visit Diagnoses Diagnosis Miscarriage- Primary Unspecified spontaneous without mention of complication documented in this encounter Additional Health Concerns Assessment Noted Time PHQ-9 Depression Total Score: 0 12/24/19 23 3:16 PM EDT documented as of this encounter Care Teams Four Horse Hitch Driver Relationship Specialty Start Date End Date Giselle Das MD [address] [place] [address] PCP - General Family Medicine 11/29/22 documented as of this encounter
--- OUTSIDE RECORDS SUMMARY | 2025-01-15 15:28 | XMS_ITS | Encounter Summary ---
Author Organization [employer] Address [address] [place] [address] 7t [place] [address] Care Team Providers Care Refractory Grinder Operator Name Role Phone Giselle Das MD Primary Care Provider [phone] Reason for Referral * Imaging (STAT) - Closed Specialty Diagnoses / Procedures Referred By Annette sullivan Referred To Contact Radiology Diagnoses 8 weeks gestation of Procedures US OB Transvaginal Stephanie Lopez CNM [address] [place] [address] Phone: tel: fax: [facility] [address] [place] [phone] Phone: tel: fax: Referral ID Status Reason Start Date Expiration Date Visits Re quested Visits Authorized [id number] Closed 01/15/2025 01/15/2026 1 1 Encounter Details Date Type Department Care Team (Late st Contact Info) Description 01/15/2025 Orders Only [facility] MEDICINE [address] [place], [place] [phone] Stephanie Lopez CNM [address] [place], [place] [phone] 8 weeks gestation of (Primary Dx) Social History Tobacco Use Types [...] Description 04/16/2025 3:45 PM EST Office Visit [facility] MEDICINE [address] [place] [address] Giselle Das MD [address] [place] [address] Scheduled Orders Name Type Priority Associated Diagnoses Orde r Schedule US OB Transvaginal Imaging STAT 8 weeks gestation of Expected: 01/15/2025, Expires: 01/15/2026 documented as of this encounter Visit Diagnoses Diagnosis 8 weeks gestation of - Primary documented in this encounter Additional Health Concerns Assessment Noted Time PHQ-9 Depression Total Score: 0 11/06/19 25 2:30 PM EDT documented as of this encounter Care Teams Refractory Grinder Operator Relationship Specialty Start Date End Date Giselle Das MD [address] [place] [address] PCP - General Family Medicine 11/29/22 documented as of this encounter
--- OUTSIDE RECORDS SUMMARY | 2025-01-15 15:28 | XMS_ITS | Encounter Summary ---
Author Organization [employer] Address [address] [place] [address] [address] [place] [address] Care Team Providers Care Dental Appliance Fixer Name Role Phone Giselle Das MD Primary Care Provider [phone] Encounter Details Date Type Department Care Team (Latest Contact Info) Description 01/01/2025 Results Follow-Up [facility] MEDICINE [address] [place] [address] Stephanie Lopez CNM [address] [place] [address] hCG, Total, Quantitative Social History Tobacco Use Types Packs/Day Years [...] Telephone Encounter - Stephanie Lopez CNM - 01/07/2025 2:35 PM EST Please send OB referral information. Thanks! documented in this encounter Plan of Treatment Upcoming Encounters Date Type Department Care Team (Late st Contact Info) Description 04/16/2025 3:45 PM EST Office Visit [facility] MEDICINE [address] [place] [phone] Giselle Das MD [address] [place] [phone] documented as of this encounter Visit Diagnoses Not on filedocumented in this encounter Additional Health Concerns Assessment Noted Time PHQ-9 Depression Total Score: 0 11/06/19 25 2:30 PM EDT documented as of this encounter Care Teams Dental Appliance Fixer Relationship Specialty Start Date End Date Giselle Das MD [address] [place] [phone] PCP - General Family Medicine 11/29/22 documented as of this encounter
--- OUTSIDE RECORDS SUMMARY | 2025-01-15 15:28 | XMS_ITS | Encounter Summary ---
Author Organization [employer] Address [address] [place] [address] Street [address] [place] [address] Care Team Providers Care Academic Guidance Specialist Name Role Phone Giselle Das MD Primary Care Provider [phone] Encounter Details Date Type Department Care Team (Late st Contact Info) Description 01/17/2023 Abstract [facility] ADULT DENTAL [address] [place] [address] Rasheed Romeo, DMD [address] [place] [address] Social History Tobacco Use Types Packs/Day Years [...] Description 04/16/2025 3:45 PM EST Office Visit [facility] MEDICINE [address] [place] [phone] Giselle Das MD [address] [place] [phone] documented as of this encounter Visit Diagnoses Not on filedocumented in this encounter Additional Health Concerns Assessment Noted Time PHQ-9 Depression Total Score: 0 12/24/19 23 3:16 PM EDT documented as of this encounter Care Teams Academic Guidance Specialist Relationship Specialty Start Date End Date Giselle Das MD [address] [place] [phone] PCP - General Family Medicine 11/29/22 documented as of this encounter
--- OUTSIDE RECORDS SUMMARY | 2025-01-15 15:28 | XMS_ITS | Encounter Summary ---
Author Organization [employer] Address [address] [place] [address] [address] [place] [address] Care Team Providers Care Statistical Reporting Analyst Name Role Phone Giselle Das MD Primary Care Provider [phone] Reason for Visit * Reason Onset Date Comments Nurse Triage 10/28/2024 Encounter Details Date Type Department Care Team ([facility] st Contact Info) Description 10/28/2024 Telephone [facility] MEDICINE [address] [place] [address] Giselle Das MD [address] [place] [address] Nurse Triage Social History Tobacco Use Types [...] mobility. Pt is advised to come to [facility] today to be seen by provider and [...] caller accepted this outcome. Contact pt at [phone] documented in this encounter Plan of Treatment Upcoming Encounters Date Type Department Care Team (Late st Contact Info) Description 04/16/2025 3:45 PM EST Office Visit [facility] MEDICINE [address] [place] [address] Giselle Das MD [address] [place] [phone] documented as of this encounter Visit Diagnoses Not on filedocumented in this encounter Additional Health Concerns Assessment Noted Time PHQ-9 Depression Total Score: 4 09/26/19 25 5:05 PM EDT documented as of this encounter Care Teams Statistical Reporting Analyst Relationship Specialty Start Date End Date Giselle Das MD [address] [place] [phone] PCP - General Family Medicine 11/29/22 documented as of this encounter
== END 2025-01-15 12:25 | disposition home or self-care (01) ==
LOC: HO.US 12:24
PROVIDERS: PCP General Practice; Visit Provider Advanced Practice Midwife
DX: O03.9 Complete or unspecified spontaneous abortion without complication (principal); Z3A.08 8 weeks gestation of pregnancy
CPT/HCPCS: 76801

== ENCOUNTER → 2025-01-15 12:29 | Outpatient (BNV) | payer OTHER, SELFPAY | PROVIDERS: PCP General Practice; Visit Provider Radiology Diagnostic Radiology | DX: Z87.59 Personal history of other complications of pregnancy, childbirth and the puerperium (principal); Z3A.08 8 weeks gestation of pregnancy; Z34.01 Encounter for supervision of normal first pregnancy, first trimester | CPT/HCPCS: 76801 ==